=== PATIENT | female | born 1950 | race Caucasian/White ===

== ENCOUNTER 2017-10-06 13:00 | Inpatient (IN) | payer MEDICARE, MEDICAID ==
[2017-10-06] MEDS ORDERED: diPHENhydraMINE PO* 25 MG PO PRN (15:18)
[2017-10-06] MEDS ORDERED: LORazepam INJ* 2 MG/ML 1 ML VIAL IV PRN (15:18)
[2017-10-06] MEDS ORDERED: Acetaminophen TAB* 325 MG PO PRN (15:29)
[2017-10-06] MEDS ORDERED: Al Hydrox/Mg Hydrox/Simet LIQ* 30 ML UDC PO PRN (15:29)
--- NOTE | 2017-10-06 15:46 | ADMNOTE ---
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 She reports a history of epilepsy dating back to childhood. She is a poor informant and the aide from the detention that accompanied her today does not know her well. Sarah reports that she is having a lot of seizures. She states that her seizures involve shaking of her arms and the feeling that "somebody is nearby". When directly questioned, she says she can lose consciousness during seizures and cannot respond. She endorses a history of grand mal seizures. She cannot tell me how frequently these are happening. She says people at the detention think she's faking her seizures but says "I know I 'm not". Dr Ma assumed her care in 2014. She was previously seen by Dr. Mena in [place] as well as Dr. Hogue. Records from [place] indicate she has a history of both epileptic and non-epileptic events, but Dr. Ma had no knowledge of Sarah being admitted for EEG monitoring. Dr Mena's note indicates seizures involve left head deviation followed by left arm elevation, then thrashing leg movements. She can have seizures in clusters. She also has a history of seizures characterized by oral automatisms then clonic movements in the left hand. It appears from the [place] records that the non-epileptic events involve "hypermotor" features, but it is not clear if these are the leg thrashing events described above. Dr Ma witnessed an episode in the office once where she froze on the exam table and became tremulous and non-responsive. This lasted about a minute, then she exclaimed that work was very stressful, leading him to question whether some of her events are stress-related. She had an ambulatory EEG in February 2016 but no events were captured. She is admitted for better characterization of her seizure disorder and to determine whether any of her events are non-epileptic in nature to better guide treatment. 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 hemorrhoidectomy. bunion surgery. cataract surgery Infectious Disease History: Denies: Traveled Outside the [place] in Last 30 Days - Family History Known Family History: Negative: Seizure Disorder - Social History Occupation: Disabled Lives: Skilled Nursing Alcohol Use: None Substance Use Type: Reports: None Smoking Status (MU): Never Smoked Tobacco EMU Exam - Exam Physical/Neurological Exam: Physical Exam: General: Well appearing in no acute distress. She is quite anxious Eyes: normal conjunctiva, pupils were equal and reactive. She has square wave jerks and occasional darting eye movements Neck: supple, no bruit ENT: atraumatic, normal oropharynx Pulmonary: clear to auscultation, good respiratory effort Cardiac: regular rate and rhythmic, no murmurs/rubs/gallops, pulses palpable MSK: no extremity deformities Derm: a few excoriations Neurological Exam: Mental Status: Awake and alert. States she will be 47 on Monday (She'll be 67). Cannot state year but knows . Oriented to person, place. Speech is simple, dysarthric. Comprehension intact to follow commands. Affect anxious. Cranial Nerves: Visual perez full to confrontation. Pupils were equal, round, and reactive constricting from 3mm to 2mm. Versions were full but she had nystagmus on right gaze. She had left exophoria. Facial musculature and sensation were symmetric. Hearing grossly intact to finger rub. Palate was upgoing bilaterally. Tongue was midline. Shoulder shrug was a little less on the left. Motor: Bulk normal throughout. No focal weakness but she wears a right AFO. Paratonia and also possible spasticity RUE. She is generally tremulous. No asterixis. Sensory: Sensation to light touch, temperature intact. Romberg was deferred Coordination: Finger to nose intact with intention tremor. Reflexes: 2+ throughout the upper and lower extremities with mute toes bilaterally. Gait: not tested. EMU Review of Systems Review of Systems: A 12 point review of systems was completed and significantly positive for: nothing. The remainder of the review was negative except as stated above in the HPI. EMU Diagnostics - Diagnostic Most Recent Vital Signs: Vital Signs: Temp Pulse Resp BP Pulse Ox 98.1 F 79 16 134/83 97 10/06/17 14:30 10/06/17 14:30 10/06/17 14:30 10/06/17 14:30 10/06/17 14:30 Lab Results: lamotrigine level 04/26/16 27.1 collected at 08:08 valproate 07/27/19 100.9 Interim video-EEG long-term monitoring report: 24 hour EEG in February 2016 showed a slow PDR, R>L temporal slowing and some poorly formed sharp waves, no definitive discharges. Also poorly formed sleep architecture. 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 The latter diagnosis is in her chart though it has not been clear how this was made as the patient does not say she's ever had this kind of monitoring in the past. She is quite anxious, and admits to stress with work, which could put her at risk for non-epileptic events. She is treated with lamotrigine and valproic acid, both at adequate to high levels, so it is important to try and delineate her episodes to guide treatment. There is not a clear description of events but Dr. Mena's documentation from [place] indicates she can have events with leftward head deviation, left arm elevation and then thrashing leg movements. She is also said to have events of oral automatisms and left hand clonic movements. Finally, Dr. Ma witnessed an event of freezing and unresponsiveness. The goal of the present prison video/EEG monitoring session is to characterize these events and to evaluate the EEG for epileptiform activity. Plan: Admit to the Epilepsy Service, Dr. Pascual attending intermodal truck driver video EEG monitoring for the purpose of characterizing events above Seizure precautions IV lorazepam as needed for prolonged seizures > 3 minutes Home AED regimen: lamotrigine 150mg BID and Depakote ER 1000mg QAM and 500mg QPM. Will continue these doses tonight Continue on other prescribed home medications.
[2017-10-06] MEDS ORDERED: Divalproex ER TAB(*) 500 MG PO SCH (21:00)
[2017-10-06] MEDS: Calcium Polycarbophil TAB* 625 MG PO SCH (21:13)
[2017-10-06] MEDS: lamoTRIgine TAB(*) 100 MG PO SCH (21:14)
[2017-10-06] MEDS: Calcium/Vitamin D TAB 250/125* TAB PO SCH (21:14)
[2017-10-06] MEDS: Artificial Tears* 15 ML BTL BOTH EYES SCH (21:15)
[2017-10-07] MEDS: Levothyroxine TAB* 50 MCG TAB PO SCH (07:21)
[2017-10-07] MEDS ORDERED: Divalproex ER TAB(*) 500 MG PO SCH (09:00)
[2017-10-07] MEDS: Calcium Polycarbophil TAB* 625 MG PO SCH ×2 (09:18→21:10)
[2017-10-07] MEDS: Omeprazole CAP* 20 MG PO SCH (09:19)
[2017-10-07] MEDS: Sertraline* 100 MG TAB PO SCH (09:19)
[2017-10-07] MEDS: Calcium/Vitamin D TAB 250/125* TAB PO SCH ×3 (09:20→21:11)
[2017-10-07] MEDS: Cetirizine* 10 MG TAB PO SCH (09:20)
[2017-10-07] MEDS: lamoTRIgine TAB(*) 100 MG PO SCH (09:22)
[2017-10-07] MEDS: Artificial Tears* 15 ML BTL BOTH EYES SCH ×2 (09:24→21:16)
--- NOTE | 2017-10-07 09:37 | EEG ---
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 She reports the onset of seizures in early life. The description of events from the patient herself is vague and she indicates that her upper extremities shake and she sometimes feels as though "someone is nearby". Per records from [place], her seizures can involve leftward head deviation and left arm elevation followed by thrashing movements of the legs or more typical complex partial seizures involving oral automatisms and left hand clonic movements. Long-term video EEG is requested to characterize events and evaluate for epileptiform abnormalities. Introduction: INTRODUCTION: The EEG was monitored from 21 scalp electrodes. Nineteen electrodes consisted of the standard parasagittal, temporal and midline leads of the International 10 -20 system. In addition, special electrodes FT9 and FT10 were placed. EEG data were recorded on an Qulsar system with simultaneous MPEG-4 digital video recording of patient behavior. EEG recording was in a monopolar montage with all electrodes referenced to FCz. Significant behavioral events were signaled by an event button, or putative electrical seizure events were detected by a computer program. All EEG data were reviewed in their entirety on a monitor with reconstruction of montages and adjustments of sensitivity and filtering. Simultaneous patient behavior was viewed on an adjacent monitor and correlated with the EEG. - Medications Active Medications: Acetaminophen (Tylenol Tab*) 650 mg PO Q4H PRN PRN Reason: PAIN Al Hydrox/Mg Hydrox/Simethicone (Maalox Plus*) 10 ml PO Q4HR PRN PRN Reason: HEARTBURN Calcium Polycarbophil (Fibercon Tab*) 625 mg PO BID [facility] Last Admin: 10/07/17 09:18 Dose: 625 mg Calcium/Vitamin D (Oscal D Tab 250/125*) 1 tab PO TID [facility] Last Admin: 10/07/17 09:20 Dose: 1 tab Cetirizine HCl (Zyrtec*) 10 mg PO DAILY [facility] Last Admin: 10/07/17 09:20 Dose: 10 mg Diphenhydramine HCl (Benadryl Po*) 25 mg PO Q6H PRN PRN Reason: ITCHING Divalproex Sodium (Depakote Er Tab(*)) 500 mg PO BEDTIME [facility] Last Admin: 10/06/17 21:14 Dose: 500 mg Divalproex Sodium (Depakote Er Tab(*)) 1,000 mg PO DAILY [facility] Last Admin: 10/07/17 09:21 Dose: 1,000 mg Lamotrigine (Lamictal Tab(*)) 150 mg PO BID [facility] Last Admin: 10/07/17 09:22 Dose: 150 mg Levothyroxine Sodium (Synthroid Tab*) 50 mcg PO 0600 [facility] Last Admin: 10/07/17 07:21 Dose: 50 mcg Lorazepam (Ativan Inj*) 1 mg IV Q8H PRN PRN Reason: Seizure > 3 minutes Omeprazole (Prilosec Cap*) 20 mg PO DAILY [facility] Last Admin: 10/07/17 09:19 Dose: 20 mg Polyvinyl Alcohol (Polyvinyl Alcohol 1.4% Opth*) 1 drop BOTH EYES BID [facility] Last Admin: 10/07/17 09:24 Dose: 1 drop Sertraline HCl (Zoloft*) 100 mg PO DAILY [facility] Last Admin: 10/07/17 09:19 Dose: 100 mg - Description Background: The waking background showed appropriate organization with clearly defined anterior-posterior voltage and frequency gradients. There was a defined posterior dominant rhythm of 7 Hertz, which was symmetrical and showed normal reactivity. Anteriorly, there was the expected pattern of lower voltage and more irregular theta and beta rhythms. There was excessive intermixed theta within the background, which was particularly prominent in the temporal regions. The sleep background was denoted by attenuation of the occipital rhythm and loss of muscle artifiact. Sleep architecture in nREM sleep was generally poorly formed though there was evident rudimentary spindles bilaterally and occasional K-complexes noted. There were occasional sharply-contoured waves in the left temporal region which had an arciform morphology and were most consistent with wickets. There was a lower voltage mixed frequency pattern associated with eye movements consistent with REM sleep. Intericatal Epileptiform Activity: #01 10/06: Medications: lamotrigine 150mg BID and Depakote ER 500mg QPM and 1000mg QAM Background as above with a slow PDR, excessive theta which is preferentially expressed in the temporal regions and poorly formed sleep architecture. No epileptiform discharges. #02 10/07/17: Medications: lamotrigine 150mg AM and 75mg PM and Depakote ER 1000mg AM and 500mg PM background remains unchanged. No epileptiform discharges. #03 10/08/17: Medications: lamotrigine 75mg AM and 50mg PM and Depakote ER 500mg AM and 250mg PM Background remains unchanged. No epileptiform discharges. #04 10/09/17: Medications: lamotrigine 25mg AM and Depakote ER 250mg AM, then d/ c Background as described above though at times there was a greater degree of slowing noted in the right parietal region at T6. This contained sharp contours which were not epileptiform. #05 10/10/17: Medications: none The patient had a hard time sleeping this night because she did not wear her CPAP and sleep was very fragmented. Background otherwise unchanged. No epileptiform discharges #06 10/11/17: Medications: none background remains unchanged. No epileptiform discharges #07 10/12: Medications: lamotrigine 150mg restarted PM 10/12, Depakote 1000mg given AM 10/13 The background demonstrated occasional sharply contoured delta slowing in the right posterior quadrant, but no clear epileptiform discharges. Otherwise background unchanged Ictal Activity: #01 10/06: No ictal events, no patient events #02 10/07: The patient experienced 2 events, which were similar in clinical characteristics. The first occurred at 13:00 on 10/07 and the second at 09:24 on 10/08. With the first event, the nurse was preparing to get the patient out of bed to the bathroom when she was noted to begin shaking with both hands fisted, saying "hmm hmm", rocking slightly side to side in bed and her legs stiffened and had a bouncing quality. She exhibited irregular jerking and shaking and her arms sometimes made punching motions. She had chewing movements. This activity calmed a bit, then picked up again after about 2 minutes. She had tinted glasses on so her eyes could not be observed but the nurse later indicated they were shut tight. The jerking and shaking waxed and waned over a period of about 8 minutes. She was given 1mg Ativan IV at the 4.5 minute earline. Upon my entering the room and interacting with the patient, though she was initially unresponsive and rigid, she opened her eyes and said "Hi Dr Bonno". The EEG was intermittently contaminated with significant muscle artifact, especially at the beginning of the event, but there was no clear change noted and no post-ictal slowing. The second event occurred as the mining engineering technologist came into the room to fix the electrodes and change the file. The patient had been sitting quietly in bed with her right hand holding her coffee cup. She did not respond when the mining engineering technologist said "good morning" and her right hand showed slight shaking. This then progressed to both hands fisted and jerking irregularly, legs stiff and extended, head twitching a little and mouth in a frown. She began leaning toward the right as the bed was lowered. She was given the phrase 'purple cow' to remember. When the nurse held her right hand, only her left hand/arm was jerking, but when the right hand was let go, both sides began jerking irregularly. She again made slight repetitive vocalizations of "hmm hmm". After about 1 minute the nurse asked the patient to open her eyes and then said "hi", but the patient's eyes could not be visualized on camera because of tinted glasses. She again had some chewing movements. She remained stiff with her fists clenched but was able to respond slowly to being asked her name. Eventually, she relaxed more and more, over the next 3 minutes. There was no change in the EEG. No seizures. #03 10/08: At 08:51 on 10/09, she had just gotten back from the bathroom and got back into bed. She said to the nurse "Can I have some help? I'm dizzy". Several seconds later she did not respond when the nurse asked her if she felt ok. The event button was pressed and her legs started to flex and extend at the knees. Eyes were closed and she had a frowning expression. EEG at times was partially obscured by muscle artifact. The left arm started to shake with hand fisted. She had humming vocalizations. She was asked to remember "blue ball". While shaking, she opened her eyes on command but did not respond verbally. At this point EEG was obscured by muscle. She was instructed to try to relax her muscles, then coughed and started crying. Several seconds later she was able to state her name. Her legs were still bouncing but were slowing down. All shaking ended after about 7 minutes. She stated she had a headache and felt dizzy before the event. There was no associated EEG change and no post-event slowing. No ictal events, no seizures. #04 10/09: At 07:03 on 10/10, she had an arousal out of sleep when nursing entered her room. FP1 had come off by this time. Her arms started to jerk/shake a bit and the nurse asked if she was cold and she replied "no". Her arms became still then several seconds later began shaking, which created motion artifact in the EEG. The event button was pressed and then the EEG was obscured by muscle artifact as the bed was reclined. Her eyes were closed, mouth in a frown and she had short moaning/humming vocalizations associated with arrhythmic shaking of the upper extremities with fisted hand. The legs flexed/extended at the knees. The shaking of the right hand was somewhat suppressible when nursing held it. The shaking gradually slowed, she opened her eyes and answered 'yes' when asked if she felt better. It lasted about 2 minutes. There was no associated EEG change observed or post-event slowing. No ictal patterns or seizures #05 10/10: No patient events, no seizures or ictal patterns #06 10/11: She had another event at 08:27 when the technologists were present, attending to her electrodes while she was eating breakfast. She turned slightly towards the right, upper extremities had bilateral irregular shaking and legs were "bouncing"/flexing and extending at the knees. She had some chewing movements but had also been eating. She was reclined more in bed and uncovered. She had side to side movements of her torso. Her glasses were removed and her eyes were closed. The shaking stopped suddenly and she opened her eyes when the nurse spoke to her. She was given the recall phrase purple cow during the event and was able to recall it. There was no associated abnormality in the EEG though part of the event was obscured by muscle artifact. No seizures, no ictal pattern #07 10/12: There were 3 events during this recording. The first occurred at 10: 07, the second at 18:50 and the third at 09:12 on 10/13. With the first event, she appeared shaky and pressed the event button. Her left arm flexed across her chest while her right was flexed at the elbow and down by her side. Eyes were closed. She was given a recall phrase. She had humming/moaning vocalizations and the legs flexed and extended repetitively at the knees. The shaking slowed somewhat, then she began hitting the side of the bed with the right hand. Her left hand then developed higher amplitude shaking and her head turned slightly towards the right. She was encouraged to loosen her hands and she opened her eyes. As the shaking was slowing and her legs were still moving, she was able to reach for the nurse's hands and state her name. She was able to say she felt queasy before this started. Much of the EEG was obscured by artifact but there was no clear electrographic correlate. This lasted about 2 minutes. With the second event at 18:50, she had just gotten back from the bathroom and was getting back in bed. She was asking for help moving up in the bed when she suddenly grimaced, speech halted and she said "I feel funny", then brought her right hand across her eyes while her left was flexed across her abdomen and fisted. Eyes were closed. There again was chewing movements, humming, side to side torso movement, legs flexing/extending at the knees. This only lasted about 30 seconds. There was no clear EEG correlate. There was rhythmic 3 Hz signature in the posterior leads R>L but this appeared to coincide with her leg movements. The last event in the morning of 10/13 occurred just after she finished breakfast. She told the nurse that her hands were numb and later indicated that it was her left hand. She had irregular shaking of her left arm primarily, then the nurse laid her down and she had her typical shaking including flexion/extension at the knees, fisting of the hands, humming vocalizations. She was able to follow commands while shaking and raise her head for the pillow to be placed underneath it. There was some rhythmic 2 to 3 Hz activity primarily at O2 and P4 which this time did not appear to completely coincide with leg movements. The event was brief, about 2 minutes.
--- NOTE | 2017-10-07 12:03 | PN ---
Epilepsy Service Progress Note Date of Service: 10/07/17 - Subjective No seizures or other events reported by patient. She indicates she's still nervous about being here, in a strange place. Wants to know what other medication I am going to put her on. CPAP incident last night noted, s/w nursing. - Medications Active Medications: Acetaminophen (Tylenol Tab*) 650 mg PO Q4H PRN PRN Reason: PAIN Al Hydrox/Mg Hydrox/Simethicone (Maalox Plus*) 10 ml PO Q4HR PRN PRN Reason: HEARTBURN Calcium Polycarbophil (Fibercon Tab*) 625 mg PO BID COUNT INCLUDES [facility] Last Admin: 10/07/17 09:18 Dose: 625 mg Calcium/Vitamin D (Oscal D Tab 250/125*) 1 tab PO TID COUNT INCLUDES THE [facility] Last Admin: 10/07/17 09:20 Dose: 1 tab Cetirizine HCl (Zyrtec*) 10 mg PO DAILY COUNT INCLUDES [facility] Last Admin: 10/07/17 09:20 Dose: 10 mg Diphenhydramine HCl (Benadryl Po*) 25 mg PO Q6H PRN PRN Reason: ITCHING Divalproex Sodium (Depakote Er Tab(*)) 500 mg PO BEDTIME COUNT INCLUDES [facility] Last Admin: 10/06/17 21:14 Dose: 500 mg Divalproex Sodium (Depakote Er Tab(*)) 1,000 mg PO DAILY COUNT INCLUDES [facility] Last Admin: 10/07/17 09:21 Dose: 1,000 mg Lamotrigine (Lamictal Tab(*)) 150 mg PO BID COUNT INCLUDES [facility] Last Admin: 10/07/17 09:22 Dose: 150 mg Levothyroxine Sodium (Synthroid Tab*) 50 mcg PO 0600 COUNT INCLUDES [facility] Last Admin: 10/07/17 07:21 Dose: 50 mcg Lorazepam (Ativan Inj*) 1 mg IV Q8H PRN PRN Reason: Seizure > 3 minutes Omeprazole (Prilosec Cap*) 20 mg PO DAILY COUNT INCLUDES [facility] Last Admin: 10/07/17 09:19 Dose: 20 mg Polyvinyl Alcohol (Polyvinyl Alcohol 1.4% Opth*) 1 drop BOTH EYES BID COUNT INCLUDES [facility] Last Admin: 10/07/17 09:24 Dose: 1 drop Sertraline HCl (Zoloft*) 100 mg PO DAILY COUNT INCLUDES [facility] Last Admin: 10/07/17 09:19 Dose: 100 mg EMU Diagnostics - Diagnostic Most Recent Vital Signs: Vital Signs: Temp Pulse Resp BP Pulse Ox 97.6 F 60 18 134/83 100 10/07/17 07:54 10/07/17 07:54 10/07/17 08:50 10/07/17 07:54 10/07/17 07:54 Lab Results: this evening, will draw lamotrigine and Depakote levels Interim video-EEG long-term monitoring report: #01 10/06: Background as above with a slow PDR, excessive theta which is preferentially expressed in the temporal regions and poorly formed sleep architecture. No epileptiform discharges. No seizures, no events EMU Exam - Exam Physical/Neurological Exam: Physical Exam: General: Well appearing in no acute distress. She is more calm today Eyes: normal conjunctiva, pupils were equal and reactive. She has square wave jerks and occasional darting eye movements Derm: a few excoriations Neurological Exam: Mental Status: Awake and alert. Oriented to person, place. Speech is simple, dysarthric. Comprehension intact to follow commands. Affect mildly anxious. Cranial Nerves: Visual perez full to confrontation. Pupils were equal, round, and reactive constricting from 3mm to 2mm. Versions were full but she had nystagmus on right gaze. She had left exophoria. Facial musculature and sensation were symmetric. Hearing grossly intact to finger rub. Palate was upgoing bilaterally. Tongue was midline. Shoulder shrug was a little less on the left. Motor: Bulk normal throughout. No focal weakness but she wears a right AFO. Paratonia and also possible spasticity RUE. She is generally tremulous. No asterixis. Sensory: Sensation to light touch intact. Romberg was deferred Coordination: Finger to nose intact with intention tremor. Gait: not tested. 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 The latter diagnosis is in her chart though it has not been clear how this was made as the patient does not say she's ever had this kind of monitoring in the past. She is quite anxious, and admits to stress with work, which could put her at risk for non-epileptic events. She is treated with lamotrigine and valproic acid, both at adequate to high levels, so it is important to try and delineate her episodes to guide treatment. There is not a clear description of events but Dr. Mena's documentation from [place] indicates she can have events with leftward head deviation, left arm elevation and then thrashing leg movements. She is also said to have events of oral automatisms and left hand clonic movements. Finally, Dr. Ma witnessed an event of freezing and unresponsiveness. No typical events recorded yet. Plan: * Continue remote computer terminal operator video EEG monitoring to capture typical episodes * Seizure precautions * Home AED regimen: lamotrigine 150mg BID and Depakote ER 1000mg QAM and 500mg QPM.Reduce lamotrigine to 75mg BID and Depakote ER to 500mg BID * IV lorazepam 1mg as needed for seizure >3 minutes * continue other home meds * follow up LTG and VPA levels (to be drawn tonight as not drawn in error this AM prior to dose)
[2017-10-07] MEDS ORDERED: LORazepam INJ* 2 MG/ML 1 ML VIAL ONE (13:03)
[2017-10-07] MEDS: lamoTRIgine TAB(*) 25 MG PO SCH (21:12)
[2017-10-07] MEDS: Divalproex ER TAB(*) 500 MG PO SCH (21:21)
[2017-10-08] MEDS: Levothyroxine TAB* 50 MCG TAB PO SCH (06:36)
[2017-10-08] MEDS: Calcium Polycarbophil TAB* 625 MG PO SCH ×2 (08:51→21:09)
[2017-10-08] MEDS: Calcium/Vitamin D TAB 250/125* TAB PO SCH ×3 (08:53→21:13)
[2017-10-08] MEDS: Sertraline* 100 MG TAB PO SCH (08:53)
[2017-10-08] MEDS: Omeprazole CAP* 20 MG PO SCH (08:53)
[2017-10-08] MEDS: Cetirizine* 10 MG TAB PO SCH (08:53)
[2017-10-08] MEDS: lamoTRIgine TAB(*) 25 MG PO SCH (08:55)
[2017-10-08] MEDS: Artificial Tears* 15 ML BTL BOTH EYES SCH ×2 (08:56→21:15)
[2017-10-08] MEDS: Divalproex ER TAB(*) 500 MG PO SCH (08:56)
--- NOTE | 2017-10-08 14:10 | PN ---
Epilepsy Service Progress Note Date of Service: 10/08/17 - Florencio Smith experienced an event around 1pm yesterday and another this morning around 9:30. She was stiff and shaking with eyes closed. slight humming vocalizations and irregular jerking. There was no change in the EEG. She reports these events are typical of her events at home. She reminded me her birthday is tomorrow and she will be 47 years old. Also s/w nursing last night who reported because LTG was a send-out test, it would not be collected until Monday so asked if I still wanted it done. Tests were cancelled. - Medications Active Medications: Acetaminophen (Tylenol Tab*) 650 mg PO Q4H PRN PRN Reason: PAIN Al Hydrox/Mg Hydrox/Simethicone (Maalox Plus*) 10 ml PO Q4HR PRN PRN Reason: HEARTBURN Calcium Polycarbophil (Fibercon Tab*) 625 mg PO BID [facility] Last Admin: 10/08/17 08:51 Dose: 625 mg Calcium/Vitamin D (Oscal D Tab 250/125*) 1 tab PO TID [facility] Last Admin: 10/08/17 08:53 Dose: 1 tab Cetirizine HCl (Zyrtec*) 10 mg PO DAILY [facility] Last Admin: 10/08/17 08:53 Dose: 10 mg Diphenhydramine HCl (Benadryl Po*) 25 mg PO Q6H PRN PRN Reason: ITCHING Divalproex Sodium (Depakote Er Tab(*)) 500 mg PO BID [facility] Last Admin: 10/08/17 08:56 Dose: 500 mg Lamotrigine (Lamictal Tab(*)) 75 mg PO BID [facility] Last Admin: 10/08/17 08:55 Dose: 75 mg Levothyroxine Sodium (Synthroid Tab*) 50 mcg PO 0600 [facility] Last Admin: 10/08/17 06:36 Dose: 50 mcg Lorazepam (Ativan Inj*) 1 mg IV Q8H PRN PRN Reason: Seizure > 3 minutes Last Admin: 10/07/17 13:05 Dose: 1 mg Omeprazole (Prilosec Cap*) 20 mg PO DAILY [facility] Last Admin: 10/08/17 08:53 Dose: 20 mg Polyvinyl Alcohol (Polyvinyl Alcohol 1.4% Opth*) 1 drop BOTH EYES BID [facility] Last Admin: 10/08/17 08:56 Dose: 1 drop Sertraline HCl (Zoloft*) 100 mg PO DAILY [facility] Last Admin: 10/08/17 08:53 Dose: 100 mg EMU Diagnostics - Diagnostic Most Recent Vital Signs: Vital Signs: Temp Pulse Resp BP Pulse Ox 97.4 F 65 18 111/71 93 10/08/17 08:01 10/08/17 08:01 10/08/17 08:01 10/08/17 08:01 10/08/17 08:01 Interim video-EEG long-term monitoring report: #01 10/06: Background as above with a slow PDR, excessive theta which is preferentially expressed in the temporal regions and poorly formed sleep architecture. No epileptiform discharges. No seizures, no events #02 10/07: Background as above, some probable wickets in the left temporal region. No discharges. No ictal patterns. Two typical events of arms stiff, fisted and jerking irregular, legs stiff, humming vocalizations, eyes closed. She was able to be coaxed to relax both times. There was no apparent change in the EEG. See LT report for further details. EMU Exam - Exam Physical/Neurological Exam: Physical Exam: General: Well appearing in no acute distress. She is more calm today. She asked if I was the doctor, didn't recognize me without my white coat. Eyes: normal conjunctiva, pupils were equal and reactive. She has square wave jerks and occasional darting eye movements Derm: a few excoriations Neurological Exam: Mental Status: Awake and alert. Oriented to person, place. Stated she would be 47 tomorrow. Speech is simple, dysarthric. Comprehension intact to follow commands. Affect mildly anxious. Cranial Nerves: Visual perez full to confrontation. Pupils were equal, round, and reactive constricting from 3mm to 2mm. Versions were full but she had nystagmus on right gaze. She had left exophoria. Facial musculature and sensation were symmetric. Hearing grossly intact to finger rub. Palate was upgoing bilaterally. Tongue was midline. Shoulder shrug was a little less on the left. Motor: Bulk normal throughout. No focal weakness but she wears a right AFO. Paratonia and also possible spasticity RUE. She is generally tremulous. No asterixis. Sensory: Sensation to light touch intact. Romberg was deferred Coordination: Finger to nose intact with intention tremor. Gait: not tested. 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 The latter diagnosis is in her chart though it has not been clear how this was made as the patient does not say she's ever had this kind of monitoring in the past. She is quite anxious, and admits to stress with work, which could put her at risk for non-epileptic events. She is treated with lamotrigine and valproic acid, both at adequate to high levels, so it is important to try and delineate her episodes to guide treatment. There is not a clear description of events but Dr. Mena's documentation from [place] indicates she can have events with leftward head deviation, left arm elevation and then thrashing leg movements. She is also said to have events of oral automatisms and left hand clonic movements. Finally, Dr. Ma witnessed an event of freezing and unresponsiveness. Two typical events recorded of bilateral arm jerking (irregular) with hands fisted, bilateral leg stiffening, eyes closed, humming vocalizations and chewing movements. No associated EEG change, most consistent with psychogenic non-epileptic attacks. Will continue to reduce meds and monitor to try and characterize epileptic events. Plan: * Continue dedicated intermodal truck driver video EEG monitoring to capture epileptic events. Have characterized non-epileptic events * Seizure precautions * Home AED regimen: lamotrigine 150mg BID and Depakote ER 1000mg QAM and 500mg QPM.Reduce lamotrigine to 50mg tonight, 25mg tomorrow and Depakote ER to 250mg BID x2 doses then stop both meds * IV lorazepam 1mg as needed for GTC * continue other home meds * cancel LTG and VPA levels
[2017-10-08] MEDS ORDERED: lamoTRIgine TAB(*) 25 MG PO SCH (21:00)
[2017-10-08] MEDS: Divalproex ER TAB(*) 250 MG PO SCH (21:10)
[2017-10-09] MEDS: Levothyroxine TAB* 50 MCG TAB PO SCH (06:31)
[2017-10-09] MEDS ORDERED: lamoTRIgine TAB(*) 25 MG PO SCH (09:00)
[2017-10-09] MEDS: Sertraline* 100 MG TAB PO SCH (09:13)
[2017-10-09] MEDS: Divalproex ER TAB(*) 250 MG PO SCH (09:13)
[2017-10-09] MEDS: Cetirizine* 10 MG TAB PO SCH (09:14)
[2017-10-09] MEDS: Omeprazole CAP* 20 MG PO SCH (09:14)
[2017-10-09] MEDS: Artificial Tears* 15 ML BTL BOTH EYES SCH ×2 (09:15→21:43)
[2017-10-09] MEDS: Calcium Polycarbophil TAB* 625 MG PO SCH ×2 (09:15→21:41)
[2017-10-09] MEDS: Calcium/Vitamin D TAB 250/125* TAB PO SCH ×4 (09:15→21:41)
--- NOTE | 2017-10-09 13:28 | PN ---
Epilepsy Service Progress Note Date of Service: 10/09/17 - Subjective Patient had a similar event this morning as she has had on previous days. Had just gotten back to bed from , complained of feeling dizzy after laying down and asked the nurse for help, then became unresponsive, eyes closed, legs bouncing and hand fisted and arms shaking arrhythmically. She began to cry during the episode. She was able to follow some commands (open eyes) shortly into episode but the shaking continued for a few more minutes. Later on, she indicated to me that she was feeling tired. She apologized, then said that she always apologizes but isn't sure why. She reiterated that people at the house thinks she fakes these but she knows she doesn't. She gave me permission to speak with her cousin later in the admission. - Medications Active Medications: Acetaminophen (Tylenol Tab*) 650 mg PO Q4H PRN PRN Reason: PAIN Last Admin: 10/09/17 09:12 Dose: 650 mg Al Hydrox/Mg Hydrox/Simethicone (Maalox Plus*) 10 ml PO Q4HR PRN PRN Reason: HEARTBURN Calcium Polycarbophil (Fibercon Tab*) 625 mg PO BID [facility] Last Admin: 10/09/17 09:15 Dose: 625 mg Calcium/Vitamin D (Oscal D Tab 250/125*) 1 tab PO TID [facility] Last Admin: 10/09/17 09:15 Dose: 1 tab Cetirizine HCl (Zyrtec*) 10 mg PO DAILY [facility] Last Admin: 10/09/17 09:14 Dose: 10 mg Diphenhydramine HCl (Benadryl Po*) 25 mg PO Q6H PRN PRN Reason: ITCHING Levothyroxine Sodium (Synthroid Tab*) 50 mcg PO 0600 [facility] Last Admin: 10/09/17 06:31 Dose: 50 mcg Lorazepam (Ativan Inj*) 1 mg IV Q8H PRN PRN Reason: Seizure > 3 minutes Last Admin: 10/07/17 13:05 Dose: 1 mg Omeprazole (Prilosec Cap*) 20 mg PO DAILY [facility] Last Admin: 10/09/17 09:14 Dose: 20 mg Polyvinyl Alcohol (Polyvinyl Alcohol 1.4% Opth*) 1 drop BOTH EYES BID [facility] Last Admin: 10/09/17 09:15 Dose: 1 drop Sertraline HCl (Zoloft*) 100 mg PO DAILY [facility] Last Admin: 10/09/17 09:13 Dose: 100 mg EMU Diagnostics - Diagnostic Most Recent Vital Signs: Vital Signs: Temp Pulse Resp BP Pulse Ox 98.3 F 77 16 149/90 95 10/09/17 08:10 10/09/17 09:04 10/09/17 09:04 10/09/17 09:04 10/09/17 09:04 Interim video-EEG long-term monitoring report: #01 /: Background as above with a slow PDR, excessive theta which is preferentially expressed in the temporal regions and poorly formed sleep architecture. No epileptiform discharges. No seizures, no events #02 /: Background as above, some probable wickets in the left temporal region. No discharges. No ictal patterns. Two typical events of arms stiff, fisted and jerking irregular, legs stiff, humming vocalizations, eyes closed. She was able to be coaxed to relax both times. There was no apparent change in the EEG. See LTM report for further details. #03 /: No events yesterday. Same background as previously. #04 /: One event in the AM of feeling dizzy followed by unresponsiveness, humming vocalizations, bouncing legs, hands fisted and arms jerking arrhythmically, eyes closed. She started crying during the event. she was able to follow some command while shaking was ongoing. Eventually it gradually waned after several minutes. No EEG change. See LTM report for further details. EMU Exam - Exam Physical/Neurological Exam: Physical Exam: General: Well appearing in no acute distress. She was tearful during the most recent episode, better when seen later. Eyes: normal conjunctiva, pupils were equal and reactive. She has square wave jerks and occasional darting eye movements Derm: a few excoriations Neurological Exam: Mental Status: Awake and alert. Oriented to person, place. Stated she would be 47 tomorrow. Speech is simple, dysarthric. Comprehension intact to follow commands. Affect mildly anxious. Cranial Nerves: Visual perez full to confrontation. Pupils were equal, round, and reactive constricting from 3mm to 2mm. Versions were full but she had nystagmus on right gaze. She had left exophoria. Facial musculature and sensation were symmetric. Hearing grossly intact to finger rub. Palate was upgoing bilaterally. Tongue was midline. Shoulder shrug was a little less on the left. Motor: Bulk normal throughout. No focal weakness but she wears a right AFO. Paratonia and also possible spasticity RUE. She is generally tremulous. No asterixis. Sensory: Sensation to light touch intact. Romberg was deferred Coordination: Finger to nose intact with intention tremor. Gait: not tested. 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 The latter diagnosis is in her chart though it has not been clear how this was made as the patient does not say she's ever had this kind of monitoring in the past. She is quite anxious, and admits to stress with work, which could put her at risk for non-epileptic events. She is treated with lamotrigine and valproic acid, both at adequate to high levels, so it is important to try and delineate her episodes to guide treatment. There is not a clear description of events but Dr. Mena's documentation from [place] indicates she can have events with leftward head deviation, left arm elevation and then thrashing leg movements. She is also said to have events of oral automatisms and left hand clonic movements. Finally, Dr. Ma witnessed an event of freezing and unresponsiveness. Three typical events recorded of bilateral arm jerking (irregular) with hands fisted, bilateral leg stiffening, eyes closed, humming vocalizations and chewing movements. Her jerking movements are somewhat suppressible. No associated EEG change, most consistent with psychogenic non-epileptic attacks. Will continue to reduce meds and monitor to try and characterize epileptic events, which may help to guide whether she needs polytherapy or not. Plan: * Continue long term care pharmacist video EEG monitoring to capture epileptic events. Have characterized non-epileptic events * Seizure precautions * Home AED regimen: lamotrigine 150mg BID and Depakote ER 1000mg QAM and 500mg QPM. Received lamotrigine 25mg and Depakote 250mg this AM and will d/c * IV lorazepam 1mg as needed for GTC * continue other home meds * will contact Fátima (pt's cousin) later in admission to discuss results
[2017-10-10] MEDS: Levothyroxine TAB* 50 MCG TAB PO SCH (07:12)
[2017-10-10] MEDS: Artificial Tears* 15 ML BTL BOTH EYES SCH ×2 (09:07→20:04)
[2017-10-10] MEDS: Sertraline* 100 MG TAB PO SCH (09:08)
[2017-10-10] MEDS: Cetirizine* 10 MG TAB PO SCH (09:08)
[2017-10-10] MEDS: Calcium Polycarbophil TAB* 625 MG PO SCH ×2 (09:08→20:04)
[2017-10-10] MEDS: Calcium/Vitamin D TAB 250/125* TAB PO SCH ×3 (09:08→20:04)
[2017-10-10] MEDS: Omeprazole CAP* 20 MG PO SCH (09:08)
--- NOTE | 2017-10-10 15:48 | PN ---
Epilepsy Service Progress Note Date of Service: 10/10/17 - Subjective Kelsie had an event at 07:05 this morning just after waking up from sleep. She vomited last night, saying she ate too much chocolate cake. Her appetite has been good. She says she feels shaky today. - Medications Active Medications: Acetaminophen (Tylenol Tab*) 650 mg PO Q4H PRN PRN Reason: PAIN Last Admin: 10/09/17 09:12 Dose: 650 mg Al Hydrox/Mg Hydrox/Simethicone (Maalox Plus*) 10 ml PO Q4HR PRN PRN Reason: HEARTBURN Calcium Polycarbophil (Fibercon Tab*) 625 mg PO BID [facility] Last Admin: 10/10/17 09:08 Dose: 625 mg Calcium/Vitamin D (Oscal D Tab 250/125*) 1 tab PO TID [facility] Last Admin: 10/10/17 15:22 Dose: Not Given Cetirizine HCl (Zyrtec*) 10 mg PO DAILY [facility] Last Admin: 10/10/17 09:08 Dose: 10 mg Diphenhydramine HCl (Benadryl Po*) 25 mg PO Q6H PRN PRN Reason: ITCHING Levothyroxine Sodium (Synthroid Tab*) 50 mcg PO 0600 [facility] Last Admin: 10/10/17 07:12 Dose: 50 mcg Lorazepam (Ativan Inj*) 1 mg IV Q8H PRN PRN Reason: Seizure > 3 minutes Last Admin: 10/07/17 13:05 Dose: 1 mg Omeprazole (Prilosec Cap*) 20 mg PO DAILY [facility] Last Admin: 10/10/17 09:08 Dose: 20 mg Polyvinyl Alcohol (Polyvinyl Alcohol 1.4% Opth*) 1 drop BOTH EYES BID [facility] Last Admin: 10/10/17 09:07 Dose: 1 drop Sertraline HCl (Zoloft*) 100 mg PO DAILY [facility] Last Admin: 10/10/17 09:08 Dose: 100 mg EMU Diagnostics - Diagnostic Most Recent Vital Signs: Vital Signs: Temp Pulse Resp BP Pulse Ox 98.3 F 70 22 131/84 95 10/09/17 08:10 10/10/17 07:17 10/10/17 07:42 10/10/17 07:17 10/09/17 09:04 Interim video-EEG long-term monitoring report: #01 10/06: Background as above with a slow PDR, excessive theta which is preferentially expressed in the temporal regions and poorly formed sleep architecture. No epileptiform discharges. No seizures, no events #02 10/07: Background as above, some probable wickets in the left temporal region. No discharges. No ictal patterns. Two typical events of arms stiff, fisted and jerking irregular, legs stiff, humming vocalizations, eyes closed. She was able to be coaxed to relax both times. There was no apparent change in the EEG. See LTM report for further details. #03 /: One event in the AM on 10/09 of feeling dizzy followed by unresponsiveness, humming vocalizations, bouncing legs, hands fisted and arms jerking arrhythmically, eyes closed. She started crying during the event. she was able to follow some command while shaking was ongoing. Eventually it gradually waned after several minutes. No EEG change. See LTM report for further details.. Same background as previously. #04 10/09: There was an event at 07:05 on 10/10 when she woke from sleep and nursing was in her room. Similar to previous, she demonstrated irregular shaking of her upper extremities, humming vocalizations, eyes closed, legs bouncing/flexing and extending at the knees. She was asked if she was cold during this and said 'no'. The shaking stopped and restarted at one point. There was no clear EEG change aside from motion artifact. Background was otherwise similar but a greater degree of slowing, sometimes with sharp contours, was seen over the right posterior temporal region. No discharges. EMU Exam - Exam Physical/Neurological Exam: Physical Exam: General: Well appearing in no acute distress. She was seated in the chair as the nurses changed her linens. Eyes: normal conjunctiva, pupils were equal and reactive. She has square wave jerks and occasional darting eye movements Derm: a few excoriations Neurological Exam: Mental Status: Awake and alert. Oriented to person, place. Speech is simple, dysarthric. Comprehension intact to follow commands. Affect mildly anxious. Cranial Nerves: Visual perez full to confrontation. Pupils were equal, round, and reactive constricting from 3mm to 2mm. Versions were full but she had nystagmus on right gaze. She had left exophoria. Facial musculature and sensation were symmetric. Hearing grossly intact to finger rub. Palate was upgoing bilaterally. Tongue was midline. Shoulder shrug was a little less on the left. Motor: Bulk normal throughout. No focal weakness but she wears a right AFO. Paratonia and also possible spasticity RUE. She is generally tremulous. No asterixis. Sensory: Sensation to light touch intact. Romberg was deferred Coordination: Finger to nose intact with intention tremor. Gait: shaky with a walker, which sometimes gets too far in front of her. Right foot drop (not wearing AFO). Assisted by 1 nurse back to bed. 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 The latter diagnosis is in her chart though it has not been clear how this was made as the patient does not say she's ever had this kind of monitoring in the past. She is quite anxious, and admits to stress with work, which could put her at risk for non-epileptic events. She is treated with lamotrigine and valproic acid, both at adequate to high levels, so it is important to try and delineate her episodes to guide treatment. There is not a clear description of events but Dr. Mena's documentation from [place] indicates she can have events with leftward head deviation, left arm elevation and then thrashing leg movements. She is also said to have events of oral automatisms and left hand clonic movements. Finally, Dr. Ma witnessed an event of freezing and unresponsiveness. Multiple typical events recorded of bilateral arm jerking (irregular) with hands fisted, bilateral leg stiffening/flexion and extension at the knees, eyes closed, humming vocalizations and chewing movements. Her jerking movements are somewhat suppressible. No associated EEG change, most consistent with psychogenic non-epileptic attacks. Received last doses of lamotrigine and Depakote in AM on 10/09 and will continue to monitor to try and characterize epileptic events, which may help to guide whether she needs polytherapy or not. Plan: * Continue local intermodal truck driver video EEG monitoring to capture epileptic events. Have characterized non-epileptic events * Seizure precautions * Home AED regimen: lamotrigine 150mg BID and Depakote ER 1000mg QAM and 500mg QPM. Received lamotrigine 25mg and Depakote 250mg AM on 10/09 then d/c'd * IV lorazepam 1mg as needed for GTC * continue other home meds * will contact Fátima (pt's cousin) later in admission to discuss results * will consider discharge tomorrow but more later to give as much time as possible to capture an epileptic event.
[2017-10-11] MEDS: Levothyroxine TAB* 50 MCG TAB PO SCH (06:35)
[2017-10-11] MEDS: Artificial Tears* 15 ML BTL BOTH EYES SCH ×2 (09:24→21:09)
[2017-10-11] MEDS: Calcium Polycarbophil TAB* 625 MG PO SCH ×2 (09:25→21:07)
[2017-10-11] MEDS: Calcium/Vitamin D TAB 250/125* TAB PO SCH ×3 (09:25→21:07)
[2017-10-11] MEDS: Sertraline* 100 MG TAB PO SCH (09:25)
[2017-10-11] MEDS: Cetirizine* 10 MG TAB PO SCH (09:26)
[2017-10-11] MEDS: Omeprazole CAP* 20 MG PO SCH (09:26)
--- NOTE | 2017-10-11 21:57 | PN ---
Epilepsy Service Progress Note Date of Service: 10/11/17 - Subjective Late entry: Patient was seen this morning. She had another short typical event when the EEG techs were attending to her electrodes. She did not have any events during the recording yesterday. She did not wear her CPAP overnight. - Medications Active Medications: Acetaminophen (Tylenol Tab*) 650 mg PO Q4H PRN PRN Reason: PAIN Last Admin: 10/09/17 09:12 Dose: 650 mg Al Hydrox/Mg Hydrox/Simethicone (Maalox Plus*) 10 ml PO Q4HR PRN PRN Reason: HEARTBURN Calcium Polycarbophil (Fibercon Tab*) 625 mg PO BID [facility] Last Admin: 10/11/17 21:07 Dose: 625 mg Calcium/Vitamin D (Oscal D Tab 250/125*) 1 tab PO TID [facility] Last Admin: 10/11/17 21:07 Dose: 1 tab Cetirizine HCl (Zyrtec*) 10 mg PO DAILY [facility] Last Admin: 10/11/17 09:26 Dose: 10 mg Diphenhydramine HCl (Benadryl Po*) 25 mg PO Q6H PRN PRN Reason: ITCHING Levothyroxine Sodium (Synthroid Tab*) 50 mcg PO 0600 [facility] Last Admin: 10/11/17 06:35 Dose: 50 mcg Lorazepam (Ativan Inj*) 1 mg IV Q8H PRN PRN Reason: Seizure > 3 minutes Last Admin: 10/07/17 13:05 Dose: 1 mg Omeprazole (Prilosec Cap*) 20 mg PO DAILY [facility] Last Admin: 10/11/17 09:26 Dose: 20 mg Polyvinyl Alcohol (Polyvinyl Alcohol 1.4% Opth*) 1 drop BOTH EYES BID [facility] Last Admin: 10/11/17 21:09 Dose: 1 drop Sertraline HCl (Zoloft*) 100 mg PO DAILY [facility] Last Admin: 10/11/17 09:25 Dose: 100 mg EMU Diagnostics - Diagnostic Most Recent Vital Signs: Vital Signs: Temp Pulse Resp BP Pulse Ox 97.6 F 76 18 146/82 95 10/11/17 08:00 10/11/17 08:37 10/11/17 20:40 10/11/17 08:37 10/11/17 08:37 Interim video-EEG long-term monitoring report: #01 10/06: Background as above with a slow PDR, excessive theta which is preferentially expressed in the temporal regions and poorly formed sleep architecture. No epileptiform discharges. No seizures, no events #02 /: Background as above, some probable wickets in the left temporal region. No discharges. No ictal patterns. Two typical events of arms stiff, fisted and jerking irregular, legs stiff, humming vocalizations, eyes closed. She was able to be coaxed to relax both times. There was no apparent change in the EEG. See LTM report for further details. #03 /: One event in the AM on 10/09 of feeling dizzy followed by unresponsiveness, humming vocalizations, bouncing legs, hands fisted and arms jerking arrhythmically, eyes closed. She started crying during the event. she was able to follow some command while shaking was ongoing. Eventually it gradually waned after several minutes. No EEG change. See LTM report for further details.. Same background as previously. #04 /: There was an event at 07:05 on 10/10 when she woke from sleep and nursing was in her room. Similar to previous, she demonstrated irregular shaking of her upper extremities, humming vocalizations, eyes closed, legs bouncing/flexing and extending at the knees. She was asked if she was cold during this and said 'no'. The shaking stopped and restarted at one point. There was no clear EEG change aside from motion artifact. Background was otherwise similar but a greater degree of slowing, sometimes with sharp contours, was seen over the right posterior temporal region. No discharges. #05 /: Similar background. No events. No ictal patterns. No discharges. EMU Exam - Exam Physical/Neurological Exam: Physical Exam: General: Well appearing in no acute distress. Laying in bed. Eyes: normal conjunctiva, pupils were equal and reactive. She has square wave jerks and occasional darting eye movements Derm: a few excoriations Neurological Exam: Mental Status: Awake and alert. Oriented to person, place. Speech is simple, dysarthric. Comprehension intact to follow commands. Affect mildly anxious. Cranial Nerves: Visual perez full to confrontation. Pupils were equal, round, and reactive constricting from 3mm to 2mm. Versions were full but she had nystagmus on right gaze. She had left exophoria. Facial musculature and sensation were symmetric. Hearing grossly intact to finger rub. Palate was upgoing bilaterally. Tongue was midline. Shoulder shrug was a little less on the left. Motor: Bulk normal throughout. No focal weakness but she wears a right AFO. Paratonia and also possible spasticity RUE. She is generally tremulous. No asterixis. Sensory: Sensation to light touch intact. Romberg was deferred Coordination: Finger to nose intact with intention tremor. 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 The latter diagnosis is in her chart though it has not been clear how this was made as the patient does not say she's ever had this kind of monitoring in the past. She is quite anxious, and admits to stress with work, which could put her at risk for non-epileptic events. She is treated with lamotrigine and valproic acid, both at adequate to high levels, so it is important to try and delineate her episodes to guide treatment. There is not a clear description of events but Dr. Mena's documentation from [place] indicates she can have events with leftward head deviation, left arm elevation and then thrashing leg movements. She is also said to have events of oral automatisms and left hand clonic movements. Finally, Dr. Ma witnessed an event of freezing and unresponsiveness. Multiple typical events recorded of bilateral arm jerking (irregular) with hands fisted, bilateral leg stiffening/flexion and extension at the knees, eyes closed, humming vocalizations and chewing movements. Her jerking movements are somewhat suppressible. No associated EEG change, most consistent with psychogenic non-epileptic attacks. Received last doses of lamotrigine and Depakote in AM on 10/09 and will continue to monitor to try and characterize epileptic events, which may help to guide whether she needs polytherapy or not. Plan: * Continue long term care administrator video EEG monitoring to capture epileptic events. Have characterized non-epileptic events * Seizure precautions * Home AED regimen: lamotrigine 150mg BID and Depakote ER 1000mg QAM and 500mg QPM. Received lamotrigine 25mg and Depakote 250mg AM on 10/09 then d/c'd * IV lorazepam 1mg as needed for GTC * continue other home meds * will contact Fátima (pt's cousin) later in admission to discuss results * will likely keep her till 10/13 to see if anything in the EEG changes. Will need to restart one or both meds tomorrow night.
[2017-10-12] MEDS: Levothyroxine TAB* 50 MCG TAB PO SCH (06:29)
[2017-10-12] MEDS: Calcium/Vitamin D TAB 250/125* TAB PO SCH ×3 (09:12→21:13)
[2017-10-12] MEDS: Artificial Tears* 15 ML BTL BOTH EYES SCH ×2 (09:12→21:12)
[2017-10-12] MEDS: Omeprazole CAP* 20 MG PO SCH (09:12)
[2017-10-12] MEDS: Cetirizine* 10 MG TAB PO SCH (09:13)
[2017-10-12] MEDS: Sertraline* 100 MG TAB PO SCH (09:13)
[2017-10-12] MEDS: Calcium Polycarbophil TAB* 625 MG PO SCH ×2 (09:13→21:13)
--- NOTE | 2017-10-12 12:25 | PN ---
Epilepsy Service Progress Note Date of Service: 10/12/17 - Subjective Kelsie reports she felt queasy this morning. She did not offer that she'd experienced another event, but when pressed she reported being aware that she'd had a shaking spell. She did not remember the recall phrase given to her. She feels shaky today and doesn't know why. Nursing reports that she is actually much stronger moving herself around in bed and walking to and from the bathroom than she was on admission. - Medications Active Medications: Acetaminophen (Tylenol Tab*) 650 mg PO Q4H PRN PRN Reason: PAIN Last Admin: 10/09/17 09:12 Dose: 650 mg Al Hydrox/Mg Hydrox/Simethicone (Maalox Plus*) 10 ml PO Q4HR PRN PRN Reason: HEARTBURN Calcium Polycarbophil (Fibercon Tab*) 625 mg PO BID [facility] Last Admin: 10/12/17 09:13 Dose: 625 mg Calcium/Vitamin D (Oscal D Tab 250/125*) 1 tab PO TID [facility] Last Admin: 10/12/17 09:12 Dose: 1 tab Cetirizine HCl (Zyrtec*) 10 mg PO DAILY [facility] Last Admin: 10/12/17 09:13 Dose: 10 mg Diphenhydramine HCl (Benadryl Po*) 25 mg PO Q6H PRN PRN Reason: ITCHING Levothyroxine Sodium (Synthroid Tab*) 50 mcg PO 0600 [facility] Last Admin: 10/12/17 06:29 Dose: 50 mcg Lorazepam (Ativan Inj*) 1 mg IV Q8H PRN PRN Reason: Seizure > 3 minutes Last Admin: 10/07/17 13:05 Dose: 1 mg Omeprazole (Prilosec Cap*) 20 mg PO DAILY [facility] Last Admin: 10/12/17 09:12 Dose: 20 mg Polyvinyl Alcohol (Polyvinyl Alcohol 1.4% Opth*) 1 drop BOTH EYES BID [facility] Last Admin: 10/12/17 09:12 Dose: 1 drop Sertraline HCl (Zoloft*) 100 mg PO DAILY [facility] Last Admin: 10/12/17 09:13 Dose: 100 mg EMU Diagnostics - Diagnostic Most Recent Vital Signs: Vital Signs: Temp Pulse Resp BP Pulse Ox 97.3 F 77 17 137/75 98 10/12/17 08:29 10/12/17 10:16 10/12/17 10:16 10/12/17 10:16 10/12/17 10:16 Interim video-EEG long-term monitoring report: #01 10/06: Background as above with a slow PDR, excessive theta which is preferentially expressed in the temporal regions and poorly formed sleep architecture. No epileptiform discharges. No seizures, no events #02 10/07: Background as above, some probable wickets in the left temporal region. No discharges. No ictal patterns. Two typical events of arms stiff, fisted and jerking irregular, legs stiff, humming vocalizations, eyes closed. She was able to be coaxed to relax both times. There was no apparent change in the EEG. See LTM report for further details. #03 /: One event in the AM on 10/09 of feeling dizzy followed by unresponsiveness, humming vocalizations, bouncing legs, hands fisted and arms jerking arrhythmically, eyes closed. She started crying during the event. she was able to follow some command while shaking was ongoing. Eventually it gradually waned after several minutes. No EEG change. See LTM report for further details.. Same background as previously. #04 /: There was an event at 07:05 on 10/10 when she woke from sleep and nursing was in her room. Similar to previous, she demonstrated irregular shaking of her upper extremities, humming vocalizations, eyes closed, legs bouncing/flexing and extending at the knees. She was asked if she was cold during this and said 'no'. The shaking stopped and restarted at one point. There was no clear EEG change aside from motion artifact. Background was otherwise similar but a greater degree of slowing, sometimes with sharp contours, was seen over the right posterior temporal region. No discharges. #05 /: Similar background. No events. No ictal patterns. No discharges. #06 /: There was an event at 08:27 while the EEG techs were present. Similar clinical characteristics as above but she had some side to side torso movements. She was able to recall a phrase given to her during the event. No EEG change. Background otherwise similar. EMU Exam - Exam Physical/Neurological Exam: Physical Exam: General: Well appearing in no acute distress. Laying in bed. Eyes: normal conjunctiva, pupils were equal and reactive. She has square wave jerks and occasional darting eye movements Derm: a few excoriations Neurological Exam: Mental Status: Awake and alert. Oriented to person, place. Speech is simple, dysarthric. Comprehension intact to follow commands. Affect mildly anxious. Cranial Nerves: Visual perez full to confrontation. Pupils were equal, round, and reactive constricting from 3mm to 2mm. Versions were full but she had nystagmus on right gaze and there is outward deviation OD with upgaze. She had left exophoria. Facial musculature and sensation were symmetric. Hearing grossly intact to finger rub. Palate was upgoing bilaterally. Tongue was midline. Shoulder shrug was a little less on the left. Motor: Bulk normal throughout. No focal weakness but she wears a right AFO. Paratonia and also possible spasticity RUE. She has a coarse postural tremor today. No asterixis. Sensory: Sensation to light touch intact. Romberg was deferred Coordination: Finger to nose intact with intention tremor. 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 The latter diagnosis is in her chart though it has not been clear how this was made as the patient does not say she's ever had this kind of monitoring in the past. She is quite anxious, and admits to stress with work, which could put her at risk for non-epileptic events. She is treated with lamotrigine and valproic acid, both at adequate to high levels, so it is important to try and delineate her episodes to guide treatment. There is not a clear description of events but Dr. Mena's documentation from [place] indicates she can have events with leftward head deviation, left arm elevation and then thrashing leg movements. She is also said to have events of oral automatisms and left hand clonic movements. Finally, Dr. Ma witnessed an event of freezing and unresponsiveness. Multiple typical events recorded of bilateral arm jerking (irregular) with hands fisted, bilateral leg stiffening/flexion and extension at the knees, eyes closed, humming vocalizations and chewing movements. Her jerking movements are somewhat suppressible. No associated EEG change, most consistent with psychogenic non-epileptic attacks. Received last doses of lamotrigine and Depakote in AM on 10/09 and will continue to monitor to try and characterize epileptic events, which may help to guide whether she needs polytherapy or not. Will restart lamotrigine tonight. May not restart Depakote as not sure patient needs polytherapy. Will d/w Dr Ma and also update patient's cousin. Plan: * Continue ocean transportation intermediary video EEG monitoring to capture epileptic events or discharges. Have characterized non-epileptic events * Seizure precautions * Home AED regimen: lamotrigine 150mg BID and Depakote ER 1000mg QAM and 500mg QPM. Restart lamotrigine 150mg BID tonight * IV lorazepam 1mg as needed for GTC * continue other home meds * will contact Fátima (pt's cousin) to discuss results * will d/w Dr Ma to see if he agrees with not restarting Depakote * discharge tomorrow.
[2017-10-12] MEDS: lamoTRIgine TAB(*) 100 MG PO SCH (21:13)
[2017-10-13] MEDS: Levothyroxine TAB* 50 MCG TAB PO SCH (06:36)
[2017-10-13] MEDS: Artificial Tears* 15 ML BTL BOTH EYES SCH (09:08)
[2017-10-13] MEDS: Calcium Polycarbophil TAB* 625 MG PO SCH (09:08)
[2017-10-13] MEDS: Cetirizine* 10 MG TAB PO SCH (09:09)
[2017-10-13] MEDS: Sertraline* 100 MG TAB PO SCH (09:09)
[2017-10-13] MEDS: Omeprazole CAP* 20 MG PO SCH (09:09)
[2017-10-13] MEDS: Calcium/Vitamin D TAB 250/125* TAB PO SCH (09:09)
[2017-10-13] MEDS: lamoTRIgine TAB(*) 100 MG PO SCH (09:12)
[2017-10-13 09:55] VITALS: BP 133/75
--- NOTE | 2017-10-13 10:34 | PN ---
Epilepsy Service Progress Note Date of Service: 10/13/17 - Subjective Kelsie has had 3 episodes in the past 24 hours. Last night around 1845, she had an episode when she was just coming back from the bathroom and the beginning of it interrupted her normal speech. She grimaced and said "I feel funny", then had her typical shaking but it only lasted a little more than 30 seconds. She had another episode this morning just after lunch where she indicated her left hand went numb first, then she had shaking. She reports her hand has never gone numb before. On morning rounds, she indicated her left index finger was still numb. She has felt more shaky since she's been here. She thinks her episodes normally happen about once a month, but they've been nearly daily here. Lamotrigine was restarted last night. - Medications Active Medications: Acetaminophen (Tylenol Tab*) 650 mg PO Q4H PRN PRN Reason: PAIN Last Admin: 10/09/17 09:12 Dose: 650 mg Al Hydrox/Mg Hydrox/Simethicone (Maalox Plus*) 10 ml PO Q4HR PRN PRN Reason: HEARTBURN Calcium Polycarbophil (Fibercon Tab*) 625 mg PO BID [facility] Last Admin: 10/13/17 09:08 Dose: 625 mg Calcium/Vitamin D (Oscal D Tab 250/125*) 1 tab PO TID [facility] Last Admin: 10/13/17 09:09 Dose: 1 tab Cetirizine HCl (Zyrtec*) 10 mg PO DAILY [facility] Last Admin: 10/13/17 09:09 Dose: 10 mg Diphenhydramine HCl (Benadryl Po*) 25 mg PO Q6H PRN PRN Reason: ITCHING Last Admin: 10/12/17 13:24 Dose: 25 mg Divalproex Sodium (Depakote Er Tab(*)) 1,000 mg PO DAILY [facility] Lamotrigine (Lamictal Tab(*)) 150 mg PO BID [facility] Last Admin: 10/13/17 09:12 Dose: 150 mg Levothyroxine Sodium (Synthroid Tab*) 50 mcg PO 0600 [facility] Last Admin: 10/13/17 06:36 Dose: 50 mcg Lorazepam (Ativan Inj*) 1 mg IV Q8H PRN PRN Reason: Seizure > 3 minutes Last Admin: 10/07/17 13:05 Dose: 1 mg Omeprazole (Prilosec Cap*) 20 mg PO DAILY [facility] Last Admin: 10/13/17 09:09 Dose: 20 mg Polyvinyl Alcohol (Polyvinyl Alcohol 1.4% Opth*) 1 drop BOTH EYES BID BEV Last Admin: 10/13/17 09:08 Dose: 1 drop Sertraline HCl (Zoloft*) 100 mg PO DAILY [facility] Last Admin: 10/13/17 09:09 Dose: 100 mg EMU Diagnostics - Diagnostic Most Recent Vital Signs: Vital Signs: Temp Pulse Resp BP Pulse Ox 97.7 F 69 16 133/75 97 10/13/17 08:47 10/13/17 09:24 10/13/17 09:50 10/13/17 09:24 10/13/17 09:24 Interim video-EEG long-term monitoring report: #01 10/06: Background as above with a slow PDR, excessive theta which is preferentially expressed in the temporal regions and poorly formed sleep architecture. No epileptiform discharges. No seizures, no events #02 /: Background as above, some probable wickets in the left temporal region. No discharges. No ictal patterns. Two typical events of arms stiff, fisted and jerking irregular, legs stiff, humming vocalizations, eyes closed. She was able to be coaxed to relax both times. There was no apparent change in the EEG. See LTM report for further details. #03 /: One event in the AM on 10/09 of feeling dizzy followed by unresponsiveness, humming vocalizations, bouncing legs, hands fisted and arms jerking arrhythmically, eyes closed. She started crying during the event. she was able to follow some command while shaking was ongoing. Eventually it gradually waned after several minutes. No EEG change. See LTM report for further details.. Same background as previously. #04 /: There was an event at 07:05 on 10/10 when she woken from sleep and nursing was in her room. Similar to previous, she demonstrated irregular shaking of her upper extremities, humming vocalizations, eyes closed, legs bouncing/flexing and extending at the knees. She was asked if she was cold during this and said 'no'. The shaking stopped and restarted at one point. There was no clear EEG change aside from motion artifact. Background was otherwise similar but a greater degree of slowing, sometimes with sharp contours, was seen over the right posterior temporal region. No discharges. #05 /: Similar background. No events. No ictal patterns. No discharges. #06 /: There was an event at 08:27 while the EEG techs were present. Similar clinical characteristics as above but she had some side to side torso movements. She was able to recall a phrase given to her during the event. No EEG change. Background otherwise similar. #07 10/12: There were 3 events during this recording. The first occurred at 10: 07, the second at 18:50 and the third at 09:12 on 10/13. With the first event, she appeared shaky and pressed the event button. Her left arm flexed across her chest while her right was flexed at the elbow and down by her side. Eyes were closed. She was given a recall phrase. She had humming/moaning vocalizations and the legs flexed and extended repetitively at the knees. The shaking slowed somewhat, then she began hitting the side of the bed with the right hand. Her left hand then developed higher amplitude shaking and her head turned slightly towards the right. She was encouraged to loosen her hands and she opened her eyes. As the shaking was slowing and her legs were still moving, she was able to reach for the nurse's hands and state her name. She was able to say she felt queasy before this started. Much of the EEG was obscured by artifact but there was no clear electrographic correlate. This lasted about 2 minutes. With the second event at 18:50, she had just gotten back from the bathroom and was getting back in bed. She was asking for help moving up in the bed when she suddenly grimaced, speech halted and she said "I feel funny", then brought her right hand across her eyes while her left was flexed across her abdomen and fisted. Eyes were closed. There again was chewing movements, humming, side to side torso movement, legs flexing/extending at the knees. This only lasted about 30 seconds. There was no clear EEG correlate. There was rhythmic 3 Hz signature in the posterior leads R>L but this appeared to coincide with her leg movements. The last event in the morning of 10/13 occurred just after she finished breakfast. She told the nurse that her hands were numb and later indicated that it was her left hand. She had irregular shaking of her left arm primarily, then the nurse laid her down and she had her typical shaking including flexion/extension at the knees, fisting of the hands, humming vocalizations. She was able to follow commands while shaking and raise her head for the pillow to be placed underneath it. There was some rhythmic 2 to 3 Hz activity primarily at O2 and P4 which this time did not appear to completely coincide with leg movements. The event was brief, about 2 minutes. Background demonstrated rare sharply contoured delta at T6/P4 and otherwise was unchanged. EMU Exam - Exam Physical/Neurological Exam: Physical Exam: General: Well appearing in no acute distress. Laying in bed. Eyes: normal conjunctiva, pupils were equal and reactive. She has square wave jerks and occasional darting eye movements Derm: a few excoriations Neurological Exam: Mental Status: Awake and alert. Oriented to person, place. Speech is simple, dysarthric. Comprehension intact to follow commands. Affect appropriate. Cranial Nerves: Visual perez full to confrontation. Pupils were equal, round, and reactive constricting from 3mm to 2mm. Versions were full but she had nystagmus on right gaze and there is outward deviation OD with upgaze. She had left exophoria. Facial musculature and sensation were symmetric. Hearing grossly intact to finger rub. Palate was upgoing bilaterally. Tongue was midline. Shoulder shrug was a little less on the left. Motor: Bulk normal throughout. No focal weakness but she wears a right AFO. She was able to relax when testing tone today in [facility] and there was no clear spasticity. She has a coarse postural tremor. No asterixis. Sensory: Sensation to light touch intact. Romberg was deferred Coordination: Finger to nose intact with intention tremor. 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 The latter diagnosis is in her chart though it has not been clear how this was made as the patient does not say she's ever had this kind of monitoring in the past. She is quite anxious, and admits to stress with work, which could put her at risk for non-epileptic events. She is treated with lamotrigine and valproic acid, both at adequate to high levels, so it is important to try and delineate her episodes to guide treatment. There is not a clear description of events but Dr. Mena's documentation from [place] indicates she can have events with leftward head deviation, left arm elevation and then thrashing leg movements. She is also said to have events of oral automatisms and left hand clonic movements. Finally, Dr. Ma witnessed an event of freezing and unresponsiveness. Multiple typical events recorded of bilateral arm jerking (irregular) with hands fisted, bilateral leg stiffening/flexion and extension at the knees, eyes closed, humming vocalizations and chewing movements. Her jerking movements are somewhat suppressible. 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 In the last 24 hours she's had 3 additional episodes and has expressed that they have been preceded by "feeling funny" or in the most instance left hand numbness. The second event yesterday started very abruptly and interrupted her normal behavior. There is possibly some associated rhythmic delta activity in the right posterior quadrant now observed, but this is difficult to discern due to motion artifact. Most likely she is having some focal seizure activity without loss of awareness , possibly primarily a sensory seizure or dizziness, and then the superimposed bilateral movements are non-epileptic/embellished but happen in response to the epileptic activity which is not well seen on the scalp EEG. Plan: * d/c LTM * lamotrigine restarted last night. Will restart Depakote 1000mg QAM and 500mg QPM as well given the recent increased frequency of these events and suspected underlying epileptic nature of events, though no clear and consistent ictal pattern is observed. * continue other home meds * attempted to contact Fátima (pt's cousin) to discuss results yesterday but no answer, will try again * FU With Dr. Ma scheduled for Nov 09 at noon. Needs RN from home to accompany her to visit. * discharge today. Staff needs education on how to handle these events because patient does not need to be brought to ER when they occur and can typically be coaxed out of shaking movements with calm reassurance.
[2017-10-13] MEDS ORDERED: Divalproex ER TAB(*) 500 MG PO SCH (11:00)
--- NOTE | 2017-10-13 11:58 | DS ---
EMU Discharge - Discharge Summary Discharge Summary: Admitted: 10/06/17 - 10/13/17 Attending: Britta Pascual MD Admitting Diagnosis: 1. localization-related epilepsy 2. 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 She reports a history of epilepsy dating back to childhood. She is a poor informant and the aide from the detention that accompanied her today does not know her well. Sarah reports that she is having a lot of seizures. She states that her seizures involve shaking of her arms and the feeling that "somebody is nearby". When directly questioned, she says she can lose consciousness during seizures and cannot respond. She endorses a history of grand mal seizures. She cannot tell me how frequently these are happening. She says people at the detention think she's faking her seizures but says "I know I 'm not". Dr Ma assumed her care in 2014. She was previously seen by Dr. Mena in [place] as well as Dr. Hogue. Records from [place] indicate she has a history of both epileptic and non-epileptic events, but Dr. Ma had no knowledge of Sarah being admitted for EEG monitoring. Dr Mena's note indicates seizures involve left head deviation followed by left arm elevation, then thrashing leg movements. She can have seizures in clusters. She also has a history of seizures characterized by oral automatisms then clonic movements in the left hand. It appears from the [place] records that the non-epileptic events involve "hypermotor" features, but it is not clear if these are the leg thrashing events described above. Dr Ma witnessed an episode in the office once where she froze on the exam table and became tremulous and non-responsive. This lasted about a minute, then she exclaimed that work was very stressful, leading him to question whether some of her events are stress-related. She had an ambulatory EEG in February 2016 but no events were captured. She is admitted for better characterization of her seizure disorder and to determine whether any of her events are non-epileptic in nature to better guide treatment. Admission Examination: General: Well appearing in no acute distress. She is quite anxious Eyes: normal conjunctiva, pupils were equal and reactive. She has square wave jerks and occasional darting eye movements Neck: supple, no bruit ENT: atraumatic, normal oropharynx Pulmonary: clear to auscultation, good respiratory effort Cardiac: regular rate and rhythmic, no murmurs/rubs/gallops, pulses palpable MSK: no extremity deformities Derm: a few excoriations Neurological Exam: Mental Status: Awake and alert. States she will be 47 on Monday (She'll be 67). Cannot state year but knows . Oriented to person, place. Speech is simple, dysarthric. Comprehension intact to follow commands. Affect anxious. Cranial Nerves: Visual perez full to confrontation. Pupils were equal, round, and reactive constricting from 3mm to 2mm. Versions were full but she had nystagmus on right gaze. She had left exophoria. Facial musculature and sensation were symmetric. Hearing grossly intact to finger rub. Palate was upgoing bilaterally. Tongue was midline. Shoulder shrug was a little less on the left. Motor: Bulk normal throughout. No focal weakness but she wears a right AFO. Paratonia and also possible spasticity RUE. She is generally tremulous. No asterixis. Sensory: Sensation to light touch, temperature intact. Romberg was deferred Coordination: Finger to nose intact with intention tremor. Reflexes: 2+ throughout the upper and lower extremities with mute toes bilaterally. Gait: not tested. Admission AED Medications: lamotrigine 150mg BID and Depakote ER 1000mg QAM and 500mg QPM Hospital Course: The patient was admitted to the epilepsy service for long-term video EEG monitoring. The patient had several events consisting of bilateral upper extremity shaking which was irregular and associated with hands fisted, eyes closed, humming/moaning vocalizations, sometimes side to side torso movements, legs flexing/extending at the knees and waxing and waning quality to the shaking. The shaking was somewhat suppressible at times and she could follow commands and sometimes speak despite bilateral shaking movements. Prior to the onset of shaking she would sometimes say she felt "funny" or queasy and on the morning of discharge she indicated her left hand went numb These were considered typical of events that the was having at home. During these events, the EEG showed no clear electrographic correlate. In the last 24 hours of recording, there was some rhythmic 2 to 3 Hz activity intermittently in the posterior quadrant, mostly on the right, but this sometimes seemed to represent motion artifact occurring in time with the leg movements. With the last event, however, this did not seem clearly time-locked to the leg movements and may have represented a briefly observed ictal pattern The following medication medication changes were made during the testing: none It is thought that the patient may be experiencing focal seizures which are primarily sensory, or perhaps associated with dizziness, and then has embellished motor movements which are not driven by epileptic activity. Discharge Examination: same as admission Destination: Home. Diet: Regular. Follow-up: Nov [address] Ma in [facility] Medications Medication Instructions Recorded Confirmed Type RX: Calcium Carbonate-Cholecalcife 1 tab PO TID MDD 3 05/14/13 10/06/17 History [Oysco 500+D 500-200 mg-Unit] RX: Calcium Polycarbophil 625 mg PO BID MDD 625 05/14/13 10/06/17 History [Fiber-Lax] RX: Divalproex ER TAB(*) [Depakote 1,000 mg PO DAILY MDD 1000 05/14/13 10/06/17 History ER TAB(*)] RX: Lamotrigine 150 mg PO BID MDD 300 05/14/13 10/06/17 History RX: Levothyroxine Sodium 50 mcg PO DAILY MDD 50 05/14/13 10/06/17 History [Levothyroxine] RX: Loratadine 10 mg PO DAILY MDD 10 05/14/13 10/06/17 History RX: Omeprazole 20 mg PO DAILY MDD 20 05/14/13 10/06/17 History RX: Sertraline HCl 100 mg PO DAILY MDD 100 05/14/13 10/06/17 History RX: Alum & Mag Hydrox-Simethicone 10 ml PO Q4HR PRN MDD 10 01/31/15 10/06/17 History [Antacid W/Simethicone] RX: Divalproex ER TAB(*) [Depakote 500 mg PO BEDTIME MDD 500 01/31/15 10/06/17 History ER TAB(*)] RX: Acetaminophen [Eq Pain 2 tab PO Q4HR PRN 10/06/17 10/06/17 History Reliever] RX: Guaifenesin/DM (SUGAR FREE)* 10 ml PO Q4HR PRN MDD 60 10/06/17 10/06/17 History [Diabetic Tussin DM*] RX: Fzerkitl-Pygpwkkvcm-Pafgzesqb- 3 applic TOPICAL Q4HR PRN MDD 3 10/06/1706/15 History [Triple Antibiotic Plus 1 %] Theratears 1 drop OPHTHALMIC BID MDD 2 10/06/17 10/06/17 History
--- NOTE | 2017-10-13 12:18 | PN ---
Correspondence/Letterhead Correspondence: 10/13/17 RE: CHIKI CUEVA When Kelsie experiences her events of shaking, she should be calmly reassured that she is ok and asked to follow some simple commands such as to open her eyes and relax/open her hands. If the shaking is subsiding and she is able to follow some commands within 5 minutes, then she does not need to be transported to the emergency room. It is important to recognize that Kelsie is not faking these events. We believe her body is shaking in response to focal seizure activity which may cause her to have sensations she has a difficult time describing but may involve dizziness , nausea and numbness of the left hand/arm. If she is unresponsive to commands while shaking for 5 minutes or more, then 911 should be called and she should be brought to the ER. Britta Pascual MD [id number]
== END 2017-10-13 12:24 | disposition home or self-care (01) | DRG 101 ==
LOC: EMU 13:09
PROVIDERS: ADMIT Psychiatry & Neurology Neurology; ATTEND Psychiatry & Neurology Neurology
PROC: 4A10X4Z Monitoring of Central Nervous Electrical Activity, External Approach (ICD-10-PCS; principal; 2017-10-06)
DX: G40.009 Localization-related (focal) (partial) idiopathic epilepsy and epileptic syndromes with seizures of localized onset, not intractable, without status epilepticus (principal); I71.2 Thoracic aortic aneurysm, without rupture; Q04.8 Other specified congenital malformations of brain; F41.9 Anxiety disorder, unspecified; F79 Unspecified intellectual disabilities; K21.9 Gastro-esophageal reflux disease without esophagitis; E07.9 Disorder of thyroid, unspecified; J30.2 Other seasonal allergic rhinitis; F32.9 Major depressive disorder, single episode, unspecified; Z98.51 Tubal ligation status; Z98.49 Cataract extraction status, unspecified eye
CPT/HCPCS: 95951; A9270-GY; J2060

== ENCOUNTER 2019-02-18 08:45 | Day surgery (SDC) | payer MEDICARE, MEDICAID ==
[~2019-02-18 08:45] MED LIST: Buffered Lidocaine 1% SYRIN* 1 ML/SYRINGE INTRADERM ONE; Famotidine IV* 10 MG/ML 2 ML (20 mg) IV ONE; Lactated Ringers 1000 ML Bag* 1,000 ML IV SCH
[2019-02-18] MEDS ORDERED: Acetaminophen TAB* 325 MG PO PRN (09:06)
[2019-02-18] MEDS ORDERED: Naloxone* 0.4 MG/ML 1 ML VIAL IV PRN (09:06)
[2019-02-18] MEDS ORDERED: oxyCODONE/Acetamin 5/325 MG* TAB PO PRN (09:06)
[2019-02-18] MEDS ORDERED: HYDROcodone/ACETAMIN 5-325 MG* 1 TAB PO PRN (09:06)
[2019-02-18] MEDS ORDERED: Ketorolac INJ* 30 MG/ML 1 ML VIAL IV PRN (09:06)
[2019-02-18] MEDS ORDERED: fentaNYL* 50 MCG/ML 2 ML VIAL (100 MCG VIAL) IV PRN (09:06)
[2019-02-18] MEDS ORDERED: DiMENhydriNATE IV* 50 MG/ML VIAL IV PUSH PRN (09:06)
[2019-02-18] MEDS ORDERED: Famotidine IV* 10 MG/ML 2 ML (20 mg) ONE (09:28)
[2019-02-18] MEDS ORDERED: ceFAZolin 2 GM in NS PREMIX(*) 2 GM/100 ML BAG IVPB ONE (09:29)
[2019-02-18] MEDS ORDERED: fentaNYL* 50 MCG/ML 2 ML VIAL (100 MCG VIAL) ONE (10:01)
[2019-02-18] MEDS ORDERED: Midazolam* 1 MG/ML 2 ML VIAL (2 MG) ONE (10:02)
[2019-02-18] MEDS ORDERED: Lidocaine 2% PF * 5 ML VIAL ONE (10:02)
[2019-02-18] MEDS ORDERED: Propofol* 10 MG/ML 20 ML BTL ONE (10:02)
[2019-02-18] MEDS ORDERED: Bupivacaine 0.25% SDV PF* 10 ML VIAL INJ ONE (10:49)
[2019-02-18 12:29] VITALS: BP 127/75
--- NOTE | 2019-02-18 22:58 | OP ---
DATE OF OPERATION: 02/18/19 - [facility] DATE OF : 54 SURGEON: Mu Ray MD MANAGER SEARCH: PEYMAN Van. An assistant unit forester was needed for the procedure to aid in positioning of the arm and retraction. ANESTHESIOLOGIST: Dr. Rivero. ANESTHESIA: Local MAC. PRE-OP DIAGNOSIS: Right volar wrist ganglion cyst. POST-OP DIAGNOSIS: Right volar wrist ganglion cyst. OPERATIVE PROCEDURE: Excision of right volar wrist ganglion cyst. INDICATIONS: Sarah has had a cyst drained. It has come back. It is quite large. They want to have it excised. ESTIMATED BLOOD LOSS: 5 mL. COMPLICATIONS: None. FINDINGS: See above and below. DESCRIPTION OF PROCEDURE: Sarah was seen in the preoperative holding area. The correct site, side, and procedure were identified. We came back to the operating room where we had a time-out and then I infiltrated 0.25% plain Marcaine in the operative area. The arm was then prepped and draped in the usual fashion and time- out was performed. The arm was exsanguinated with the Esmarch and the tourniquet was inflated to 250 mmHg. I made a lazy-S incision over the cyst. Dissection was carried down for begin of marginal excision of the cyst by locating the radial artery. It was firmly adherent to the radial aspect of the cyst. I very carefully came proximally and mobilized the artery and then trace was found until I could retract the artery radially. The cyst was then excised via marginal excision down to the radial carpal joint where it emanated. The stalk was identified and amputated at the joint and then the area was cauterized with a Bovie. We did go in and let the tourniquet down. The hand pinked up immediately. We then re-inflated the tourniquet and hemostasis was obtained. The wound was closed with 4-0 Monocryl suture and Steri-Strips. A plaster splint was applied. She was taken to the recovery room in stable condition. [id number]/CPS #: [id number] [facility]
== END 2019-02-18 12:43 | disposition home or self-care (01) ==
LOC: OR 08:45
PROVIDERS: ATTEND Orthopaedic Surgery Hand Surgery
DX: M67.431 Ganglion, right wrist (principal); G80.8 Other cerebral palsy; K21.9 Gastro-esophageal reflux disease without esophagitis; E07.9 Disorder of thyroid, unspecified; G40.909 Epilepsy, unspecified, not intractable, without status epilepticus; Z88.8 Allergy status to other drugs, medicaments and biological substances; F41.9 Anxiety disorder, unspecified; E78.5 Hyperlipidemia, unspecified; I10 Essential (primary) hypertension; J45.909 Unspecified asthma, uncomplicated
CPT/HCPCS: 88304; J0690; J2250; J2704; J3010; J3490

== ENCOUNTER 2019-12-01 11:35 | Emergency (ER) | payer MEDICARE, MEDICAID ==
--- OUTSIDE RECORDS SUMMARY | 2019-12-01 14:36 | XMS REPORT | Continuity of Care Document ---
:1950 External Reference #:[id number] Author Name Mg Renteria MD Address [address], [address] [place] [address] Care Team Providers Name Role Phone Neda Trinh MD - Family Medicine Care Team Information Disability Aide [phone] Rob Palomo - Urology Care Team Information Disability Aide [phone] Problems Active Problems Provider Date Hyperlipidemia Jarrell Ruiz MD Onset: 06/25/2015 Hypothyroidism Jarrell Ruiz MD Onset: 06/25/2015 Depressive disorder Jarrell Ruiz MD Onset: 06/25/2015 Gastroesophageal reflux disease Jarrell Ruiz MD Onset: 06/25/2015 Note: upper to D2 2014 Chronic obstructive lung disease Jarrell Ruiz MD Onset: 06/25/2015 Benign essential hypertension Jarrell Ruiz MD Onset: 06/25/2015 Benign neoplasm of colon Jarrell Ruiz MD Onset: 06/25/2015 Note: Big TA colo to cecum 2014 Cerebral palsy Jarrell Ruiz MD Onset: 06/25/2015 Epilepsy Jarrell Ruiz MD Onset: 06/25/2015 Bladder muscle dysfunction - overactive Jarrell Ruiz MD Onset: 06/25/2015 Localized, primary osteoarthritis of the Romi Anna PA Onset: 12/04/2015 shoulder region Disorder of shoulder Romi Anna PA Onset: 12/04/2015 Synovitis and tenosynovitis Romi Anna PA Onset: 01/15/2016 Chronic kidney disease stage 2 Neda Trinh MD Onset: 07/30/2018 Moderate recurrent major depression Neda Trinh MD Onset: 07/30/2018 Incontinence without sensory awareness Neda Trinh MD Onset: 07/30/2018 Obstructive sleep apnea syndrome Neda Trinh MD Onset: 07/30/2018 Ganglion cyst of right wrist Kendell Gregory MD,FACS Onset: 11/06/2018 Other seizures Neda Trinh MD Onset: 01/28/2019 Constipation Neda Trinh MD Onset: 05/09/2019 Dyspnea Neda Trinh MD Onset: 07/19/2019 Social History Type Date Description Comments Sex Unknown Tobacco Use Start: Unknown Never Smoked Cigarettes Smoking Status Reviewed: 11/05/19 Never Smoked Cigarettes Smokeless Tobacco Never Used Smokeless Tobacco ETOH Use Denies alcohol use Tobacco Use Start: Unknown Patient denies history of smoking Recreational Drug Use Denies Drug Use Allergies, Adverse Reactions, Alerts Active Allergies Reaction Severity Comments Date Macrodantin 04/20/2016 Medications Active Medications SIG Qnty Indications Ordering Date Provider Suprep Bowel Prep Complete first part 354ml Z12.11 Mg Renteria, 2019 Kit of prep the evening MD before procedure 17.5-3.13-1.6GM/177M and second part at L Solution least 4 hours before your procedure time Gas Relief take 1 tab day 2units Z12.11 Mg Renteria, 11/05/2019 80mg before colonoscopy [place] and 1 tab day of colonoscopy early in the am Stationary Bicycle use stationary 1units R06.02 Neda Trinh, 07/19/2019 bicycle every day MD to increase endurance and to help with weight loss and blood pressure G40.909 E66.3 Losartan Potassium Take 1 Tablet By 90tabs Neda Trinh MD 05/09/2019 50mg Mouth Every Day. Tablets Maximum Daily Dose Is 1 TGT Psyllium Fiber 3 caps by mouth 300caps K59.00 Neda Trinh MD 05/09 520mg 2x/day Capsules Colace 1 by mouth daily 60caps K59.00 Alexx Joe, 02/28/2019 100mg Capsules and can take twice MD a day as needed Levocarnitine (Dietary) 3 tabs bid Cruz, 12/04/2018 HOLLIE Coats 330mg Tablets Levothyroxine Sodium Take 1 Tablet By 30tabs Neda Trinh MD 2017 75mcg Mouth Every Day. Tablets Maximum Daily Dose Is 1 Omeprazole 1 by mouth every Jarrell Ruiz MD 07/27/[address] stephany Rochaorb DM as directed prn Jarrell Ruiz MD 09/22/2015 100-10mg/5ML Liquid Peridex use daily A/D Unknown 0.12% Solution Divalproex Sodium ER take two po bid Unknown 500mg Tablets ER 24HR Lamotrigine 1 tab bid Unknown 150mg Tablets Vesicare 1 t by mouth every 90tabs SusieMariann sherman, 5mg Tablets day M.D. Oysco 500+D take one tablet by Unknown [id number] mouth three a day Tablets Systane Balance 1 drop to both Unknown Restorative Formula eyes bid 0.6% Solution Sertraline HCL 1 by mouth every Unknown 100mg day Tablets Loratadine 1 by mouth every Unknown 10mg Tablets day Antacid Liquid 10 ml as needed Unknown [id number] Suspension Acetaminophen i-ii by mouth Unknown 325mg Tablets every 4 hours as needed Medications Administered in Office Medication SIG Qnty Indications Ordering Provider Date Methylprednisolone acetate Romi Anna PA 12/04/2015 (Depomedrol) 80mg injection Injection Immunizations CPT Code Status Date Vaccine Lot # [id number] Given 07/20/2019 Influenza High Dose 39691 Given 07/30/2018 Pneumococcal Conjugate Vaccine 13 Valent For [id number] Intramuscular Use 56153 Given 07/30/2018 Influenza High Dose [id number] Given 07/27/2017 Influenza Virus Vaccine Quadrivalent Iiv4 Split [id number] Preser Free Id Vital Signs Date Vital Result Comment 11/05/2019 11:36am BP Systolic Sitting Left Arm 137 mmHg BP Diastolic Sitting Left Arm 80 mmHg Body Temperature 98.2 F Heart Rate 65 /min Respiratory Rate 12 /min Weight 140.00 lb reported Pain Level 0 O2 % BldC Oximetry 98 % Ra 08/07/2019 2:14pm BP Systolic Sitting Left Arm 118 mmHg BP Diastolic Sitting Left Arm 72 mmHg Body Temperature 97.6 F Heart Rate 92 /min Respiratory Rate 20 /min Height 65 inches 5'5" Weight 204.00 lb BMI (Body Mass Index) 33.9 kg/m2 BSA (Body Surface Area) 1.99 m2 [place] body weight in kilograms 57 kg O2 % BldC Oximetry 98 % Results Test Acquired Date Facility Test Result H/L Range Note Comprehensive 09/04/2019 [facility] Glucose 82 mg/dL Normal 74-106 1 Metabolic Panel [address] [place], [place] [id number] [phone] BUN 18 mg/dL Normal 7-18 Creatinine 1.1 mg/dL Normal 0.6-1.3 Glom Filtration Rate, Estimate 53 mL/min >60 If >60 mL/min >60 2 BUN/Creat 16.3 ratio Sodium 137 mmol/L Normal 136-145 Potassium 4.3 mmol/L Normal 3.5-5.1 Chloride 102 mmol/L Normal 98-107 Carbon Dioxide 27 mmol/L Normal 21-32 Anion Gap 8 mEq/L Normal 8-16 Calcium 9.3 mg/dL Normal 8.5-10.1 Total Protein 7.1 g/dL Normal 6.4-8.2 Albumin 3.5 g/dL Normal 3.4-5.0 Globulin 3.6 g/dL Normal 1.9-4.3 Alb/Glob 1.0 ratio Bilirubin,Total 0.2 mg/dL Normal 0.2-1.0 Sgot/Ast 9 U/L Low 15-37 3 SGPT/Alt 15 U/L Normal 12-78 Alkaline Phosphatase 65 U/L Normal 45-117 Laboratory test 09/04/2019 [facility] Thyroid 3.46 Normal 0.30-4.[address] Stim uIU/[place] [address] Hormone [phone] CBC W/Automated 09/04/2019 [facility] White Blood 3.7 K/uL Normal 3.1-10.[address] [place] [address] [phone] Red Blood Count 4.23 M/uL Normal 3.90-5.40 Hemoglobin 13.2 gm/dL Normal 11.6-15.8 Hematocrit 39.0 % Normal 36.0-46.1 Mean Cell Volume 92.2 fl Normal 80.9-99.0 Mean Corpuscular HGB 31.2 pg Normal 25.9-32.7 Mean Corpuscular HGB Conc 33.8 g/dL Normal 30.8-34.3 Platelet Count 185 K/uL Normal 155-360 Red Cell Distri Width SD 44.2 fl Normal 36-47 Red Cell Distri Width %CV 13.0 % Normal 11.7-14.4 Mean Platelet Volume 10.7 fl Normal 8.9-12.4 Neut% 55.4 % Normal 40.4-72.8 Lymph % 30.1 % Normal 20.0-42.0 [place] % 12.1 % Normal 4.3-13.2 Eo% 1.1 % Normal 0.0-6.6 Bas% 0.5 % Normal 0.0-1.1 Immature Grans 0.8 % Normal 0.0-5.0 NRBC % 0.0 /100WBC < 10/ 100 WBC Neut# 2.06 K/uL Normal 1.8-7.0 Lymph # 1.12 K/uL Normal 1.0-4.0 [place] # 0.45 K/uL Normal 0.3-0.9 Eos # 0.04 K/uL Normal 0.0-0.5 Baso # 0.02 K/uL Normal 0.0-0.1 Immature Grans Absolute 0.03 K/uL NRBC # 0.00 K/uL LDL Cholesterol Profile 09/04/2019 [facility] Cholesterol 154 mg/dL <200 4 [address] [place] [address] [phone] Triglycerides 178 mg/dL High <150 5 HDL Cholesterol 60 mg/dL >40 6 LDL-Cholesterol 58 mg/dL < 100 7 1 I10 E03.9 K21.9 Z00.00 Z13.220 2 Note: Persistent reduction for 3 months or more in an eGFR <60 mL/min/1.73 m2 defines CKD. Patients with eGFR values >/=60 mL/min/1.73 m2 may also have CKD if evidence of persistent proteinuria is present. The original MDRD equation for estimated GFR is not valid for patients less than 18 years of age. Additional information may be found at www.kdoqi.org. 3 Values below the stated reference ranges of AST and ALT can be seen in normal populations. Clinical correlation is suggested. 4 Reference Guidelines*: Desirable: ........... < 200 mg/dL Borderline High: ..... 200-239 mg/dL High: ................ >= 240 mg/dL * The National Cholesterol Education Program (NCEP) 5 Reference Guidelines*: Normal: ............. < 150 mg/dL Borderline High: .... 150-199 mg/dL High: ............... 200-499 mg/dL Very High: .......... > 500 mg/dL * Source: National Cholesterol Education Program (NCEP) 6 Reference Guidelines*: Low HDL: ..... < 40 mg/dL Normal: ..... 40-60 mg/dL Desirable: ... > 60 mg/dL *The National Cholesterol Education Program(NCEP) 7 Reference Guidelines*: Optimal:........... <100 mg/dL Near Optimal....... 100-129 mg/dL Borderline High.... 130-159 mg/dL High............... 160-189 mg/dL Very High.......... >=190 mg/dL * Source: National Cholesterol Education Program (NCEP) Procedures Date Code Description Status 08/20/2019 63825581 Mammogram Completed 08/07/2019 51178 Shaving of epiderm or dermal lesion,single Completed lesion,trnk,0.6-1.0cm 01/21/2019 [id number] Colonoscopy Completed 07/26/2018 [id number] Bone Mineral Density Test Completed 07/28/2017 [id number] Mammogram Completed 09/07/2015 [id number] Colonoscopy Completed 03/15/2010 [id number] Colonoscopy Completed 09/01/2004 [id number] Colonoscopy Completed 04/22/1998 [id number] Flexible Sigmoidoscopy Completed Medical Devices Description No Information Available Encounters Type Date Location Provider Dx Diagnosis Office Visit 08/07/2019 Family Medicine Neda Trinh, Z00.00 Encntr for general 1:30p Jef MOORE MD adult medical exam w/o abnormal findings G40.909 Epilepsy, unsp, not intractable, without status epilepticus I10 Essential (primary) hypertension F33.1 Major depressive disorder, recurrent, moderate E03.9 Hypothyroidism, unspecified G80.9 Cerebral palsy, unspecified G47.33 Obstructive sleep apnea (adult) (pediatric) K21.9 Gastro-esophageal reflux disease without esophagitis L82.0 Inflamed seborrheic keratosis Office Visit 07/19/2019 1:00p Family Medicine Neda Trinh, I10 Essential (primary) Jef MOORE MD hypertension G40.909 Epilepsy, unsp, not intractable, without status epilepticus R06.02 Shortness of breath Office Visit 05/09/2019 10:45a Family Medicine Neda Trinh, I10 Essential (primary) Jef MOORE MD hypertension G40.909 Epilepsy, unsp, not intractable, without status epilepticus F33.1 Major depressive disorder, recurrent, moderate M67.431 Ganglion, right wrist E03.9 Hypothyroidism, unspecified K59.00 Constipation, unspecified Assessments Date Code Description Provider 11/05/2019 Z12.11 Encounter for screening for malignant neoplasm Mg Renteria MD of colon 11/05/2019 K59.00 Constipation, unspecified Mg Renteria MD 11/05/2019 R12 Heartburn Mg Renteria MD 08/07/2019 Z00.00 Encounter for general adult medical examination Neda Trinh MD without abnormal findings 08/07/2019 G40.909 Epilepsy, unspecified, not intractable, without Neda Trinh MD status epilepticus 08/07/2019 I10 Essential (primary) hypertension Neda Trinh MD 08/07/2019 F33.1 Major depressive disorder, recurrent, moderate Neda Trinh MD 08/07/2019 E03.9 Hypothyroidism, unspecified Neda Trinh MD 08/07/2019 G80.9 Cerebral palsy, unspecified Neda Trinh MD 08/07/2019 G47.33 Obstructive sleep apnea (adult) (pediatric) Neda Trinh MD 08/07/2019 K21.9 Gastro-esophageal reflux disease without Neda Trinh MD esophagitis 08/07/2019 L82.0 Inflamed seborrheic keratosis Neda Trinh MD 07/19/2019 I10 Essential (primary) hypertension Neda Trinh MD 07/19/2019 G40.909 Epilepsy, unspecified, not intractable, without Neda Trinh MD status epilepticus 07/19/2019 R06.02 Shortness of breath Neda Trinh MD 05/09/2019 I10 Essential (primary) hypertension Neda Trinh MD 05/09/2019 G40.909 Epilepsy, unspecified, not intractable, without Neda Trinh MD status epilepticus 05/09/2019 F33.1 Major depressive disorder, recurrent, moderate Neda Trinh MD 05/09/2019 M67.431 Ganglion, right wrist Neda Trinh MD 05/09/2019 E03.9 Hypothyroidism, unspecified Neda Trinh MD 05/09/2019 K59.00 Constipation, unspecified Neda Trinh MD Plan of Treatment Future Appointment(s):01/13/2020 8:30 am - Neda [facility]h MD at [facility]03/03/2020 10:15 am - Shahid Evans PA at [id number] - Mg Renteria MDZ12.11 Encounter for screening for malignant neoplasm of colonNew Medication:Suprep Bowel Prep Kit 17.5-3.13-1.6 GM/177ML - Complete first part of prep the evening before procedure and second part at least 4 hours before your procedure timeGas Relief 80 mg - take 1 tab day before colonoscopy and 1 tab day of colonoscopy early in the amNew Orders:Colonoscopy, Ordered: 11/05/19Follow up:Patient to be scheduled for repeat colonoscopy Neurology evaluation Follow-up pending [id number] Constipation, unspecifiedComments:Continue with bowel [id number] HeartburnComments:Continue with PPI; discussed weaning offAntireflux lifestyle modifications Functional Status Functional Condition Comment Date Status minimal assistance needed Active Rolling walker is used to ambulate Active Glasses Active Requires assistance with cooking Active Requires assistance with housekeeping Active Requires assistance with laundry Active Requires assistance with shopping Active Requires assistance with transportation Active Requires assistance with money management Active Requires assistance with medication management Active Requires assistance with food preparation Active Mental Status Description No Information Available Referrals Description No Information Available
[2019-12-01 14:47] VITALS: BP 135/84
--- NOTE | 2019-12-01 14:49 | UC ---
General HPI - HPI Summary HPI Summary: Patient here with caregiver - she is from [facility]. States she was walking with her walker and got off balance and fell, injuring her right foot and toe. States she can walk but it hurts to ambulate. States she just got out of the hospital for her seizures. No history of injuries to this foot in the past. Meds: reviewed - History of Current Complaint Stated Complaint: RIGHT FOOT, ANKLE INJURY Time Seen by Provider: 12/01/19 14:33 - Allergy/Home Medications Allergies/Adverse Reactions: Allergies Allergy/AdvReac Type Severity Reaction Status Date / Time nitrofurantoin Allergy Unknown Unknown Verified 12/01/19 14:43 Reaction Details Home Medications: Home Medications Docusate CAP* [Colace Cap*] 100 mg PO DAILY 12/01/19 [History Confirmed 12/01/19 ] PMH/Surg Hx/FS Hx/Imm Hx Endocrine History: Thyroid Disease Cardiovascular History: Hypertension GI/ History: Gastroesophageal Reflux Neurological History: Seizures - Surgical History Surgical History: Yes Surgery Procedure, Year, and Place: Tubal ligation 1991. Hemorrhoidectomy 1991. Bunion surgery. Cataract surgery bilateral 2012 - Family History Known Family History: Negative: Seizure Disorder - Social History Alcohol Use: None Substance Use Type: None Smoking Status (MU): Never Smoked Tobacco Have You Smoked in the Last Year: No - Immunization History Most Recent Influenza Vaccination: Pt received this Flu Season, per report from her Aide Most Recent Pneumonia Vaccination: unknown Review of Systems All Other Systems Reviewed And Are Negative: Yes Motor: Positive: Decreased ROM Physical Exam Triage Information Reviewed: Yes Appearance: Well-Appearing Vital Signs Reviewed: Yes Musculoskeletal: Positive: Other: - Ankle/foot swelling of right with ecchymosis and edema of great toe Good pulses and cap refill. Limited ROM due to pain however, overall limited ROM b/l Skin Exam: Normal Diagnostics - Radiology Ankle/Foot xray Radiology Interpretation Completed By: Radiologist Summary of Radiographic Findings: Ankle: No fracture. Foot: Minimally displaced interarticular Fx at base of first phalanx Course/Dx - Course Course Of Treatment: 69 yr old IDD patient from [facility] fell while using her walker xray: fracture of first phalanx Plan Recommend use Cam Boot while ambulating with walker Recommend supervision with ambulation If unable to tolerate weight bearing with CAM boot and walker - would use wheel chair until seen by Orthopedics Follow up with Orthopedics - Dr. Arriaga Rest, Elevate, ice area. Use tylenol and/or ibuprofen as needed for pain/ swelling - Diagnoses Provider Diagnosis: Closed fracture of one or more phalanges of right foot Discharge ED - Sign-Out/Discharge Documenting (check all that apply): Patient Departure All imaging exams completed and their final reports reviewed: Yes - Discharge Plan Condition: Good Disposition: HOME Patient Education Materials: Toe Fracture (ED) Referrals: Halie Preston PA [Primary Care Provider] - Additional Instructions: Recommend use Cam Boot while ambulating with walker Recommend supervision with ambulation If unable to tolerate weight bearing with CAM boot and walker - would use wheel chair until seen by Orthopedics Follow up with Orthopedics - Dr. Arriaga [phone] Rest, Elevate, ice area. Use tylenol and/or ibuprofen as needed for pain/ swelling - Billing Disposition and Condition Condition: GOOD Disposition: Home
== END 2019-12-01 15:32 | disposition home or self-care (01) ==
LOC: UCCORT 11:35
DX: S92.911A Unspecified fracture of right toe(s), initial encounter for closed fracture (principal); I10 Essential (primary) hypertension; Z88.1 Allergy status to other antibiotic agents; W18.30XA Fall on same level, unspecified, initial encounter; Y93.01 Activity, walking, marching and hiking; Y92.9 Unspecified place or not applicable
CPT/HCPCS: 99212; G0463